=== PATIENT | male | born 1950 | race Caucasian/White ===

== ENCOUNTER 2021-01-11 08:41 | Observation (INO) | payer MEDICARE, SELFPAY ==
[2021-01-11 08:42] VITALS: BP 145/83; PULSE 84; RESP 18; TEMP 36.6; O2SAT 99; BMI 24.3
--- NOTE | 2021-01-11 09:32 | EX.ED.DYSGE1 ---
HPI History of Present Illness Chief Complaint: General Illness Informant: patient and spouse/S.O. Onset/Context/Timing Onset: Weeks (2) Context: Gradual Onset Timing: Continuous Quality: aching Location: all joints but mainly shoulders, wrists, hips Current Severity: Moderate Maximum Severity: Moderate Worsened by: moving Relieved by: remaining still. Partial improvement with naproxen. Associated Symptoms Associated Symptoms: none Narrative Narrative: Patient presenting with diffuse arthralgias that are making it hard to get around and move although he is able. This is been going on for 2 weeks. There was no obvious inciting event. He has had arthritis in 1 joint at a time before such as a hip, but never all over like this. He has had no fevers or chills. He has felt a little malaised but has been able to get around okay. He denies any headaches, changes in vision, focal weakness, paresthesias/numbness, or confusion. His low back hurts a little but for the most part the rest of his spine and neck are unaffected. He denies any swelling or redness in any joints. He denies having any IV injections or infusions of anything lately. He has never been vaccinated against Covid, and he has done 2 or 3 rapid antigen home tests in the past 2 weeks that have all been negative. His is not ill. He does live around trees and [place] but denies any known tick bites in the last several months. He saw his doctor twice already for this, and has had blood work, it showed elevated CRPs, normal ESR's, normal white blood counts, he had hyponatremia that went from 125-129, the last measurement was about 10 days ago and these were done by his PCP. He presents to the ER saying that he does not have any new symptoms but he is tired of the symptoms. [facility] Medical History Arthritis Back pain High cholesterol Hypertension Home Medications cyclobenzaprine 10 mg tablet 10 mg PO TID PRN #30 tab 06/13/17 [Rx Last Taken Unknown] lisinopril 20 mg PO DAILY 01/11/21 [History Last Taken Unknown] rosuvastatin 20 mg PO DAILY 01/11/21 [History Last Taken Unknown] tamsulosin 0.4 mg PO DAILY 01/11/21 [History Last Taken Unknown] Allergy/AdvReac Type Severity Reaction Status Date / Time No Known Allergies Allergy Verified 01/11/21 08:45 Social History Smoking Status: Never smoker alcohol intake: current ROS ROS ED Constitutional Constitutional ED: Reports malaise; Denies chills or fever(s) Eyes Eyes: Denies change in vision or diplopia ENT ENT ED: Denies rhinorrhea or sore throat Cardiovascular Cardiovascular: Denies chest pain or palpitations Respiratory/Chest Respiratory/Chest: Denies cough or dyspnea Gastrointestinal Gastrointestinal: Denies abdominal pain, diarrhea, nausea or vomiting Genitourinary Genitourinary ED: Denies dysuria or hematuria Musculoskeletal Musculoskeletal: Reports as per HPI, arthralgias and joint pain; Denies muscle cramps, muscle spasms, myalgias, neck pain or stiffness Integumentary Denies abscess or rash Neurologic Neurologic: Denies headache(s), paresthesias or weakness Psychiatric Psychiatric: Denies anxiety or suicidal thoughts EXAM Physical Exam Const Vital Signs: 01/11/21 08:42 01/11/21 08:57 01/11/21 11:20 Temperature 97.9 F Temperature Source Temporal Pulse Rate 84 65 Respiratory Rate 18 14 Respiratory Effort Normal Non-Labored Blood Pressure 145/83 H 134/72 H Blood Pressure Mean 103 92 Pulse Ox 99 99 Oxygen Delivery Method Room Air Room Air Positive well nourished and well developed General Appearance ED: well developed and NAD HEENT Reports moist mucous membranes normocephalic and atraumatic Eyes PERRL and EOMs intact bilaterally Neck full ROM and supple Resp normal respiratory effort and clear to auscultation bilaterally Cardio regular rate, regular rhythm and no murmurs GI non-tender and non-distended Auscultation: normoactive bowel sounds Palpation: soft Back/Spine no CVA tenderness General Back: other FROM Extremity normal to inspection and full ROM Extremity Narrative: Short arc range of motion of all joints without any difficulty. All joints affected are normal on inspection. Patient states that it hurts when he moves his hips especially and his shoulders but he is able. General Extremety ED: Negative for edema, pulses abnormal or tenderness General Extremity: Negative for edema or pulses abnormal Neuro oriented x3, CN's II-XII intact bilaterally and no sensory deficits noted Sensorium / Orientation: awake and alert Motor Exam: strength 5/5 throughout Skin no rashes or lesions noted and no wounds MDM MDM MDM Narrative Medical decision making narrative: Patient now is more hyponatremic than he was initially at 124. Unknown how this is related to his polyarthralgia. His ESR is now elevated as well as his CRP which is extremely high, he does not have a leukocytosis. I did do blood cultures, a Lyme screen, Covid PCR, none of which will come back today. Given his hyponatremia I think he may benefit from admission. Lab Data Attestation: I reviewed the patient's lab results. Labs: Laboratory Results - last 24 hr 01/11/21 01/11/21 01/11/21 09:47 09:50 10:05 WBC 8.9 RBC 3.94 L Hgb 12.0 L Hct 34.0 L MCV 86.3 MCH 30.5 MCHC 35.3 RDW Std Deviation 37.2 RDW Coeff of Ines 11.7 Plt Count 477 H MPV 7.8 Immature Gran % (Auto) 0.400 Neut % (Auto) 59.8 Lymph % (Auto) 23.6 [place] % (Auto) 13.7 H Eos % (Auto) 1.6 Baso % (Auto) 0.9 Absolute Neuts (auto) 5.3 Absolute Lymphs (auto) 2.10 Nucleated RBC % 0 ESR 88 H Sodium Potassium Chloride Carbon Dioxide Anion Gap BUN Creatinine Estim Creat Clear Calc Est GFR (MDRD) Af Amer Est GFR (MDRD) Non-Af BUN/Creatinine Ratio Glucose Calcium Total Bilirubin AST ALT Alkaline Phosphatase Total Creatine Kinase Troponin I High Sens C-React Prot Ext Range Total Protein Albumin Globulin Albumin/Globulin Ratio Urine Color Yellow Urine Clarity Sl. Cloudy Urine pH 8.0 Ur Specific [place] 1.015 Urine Protein Negative Urine Glucose (UA) Normal Urine Ketones Negative Urine Occult Blood Negative Urine Nitrite Negative Urine Bilirubin Negative Urine Urobilinogen Normal Ur Leukocyte Esterase Negative Urine RBC 0 SEEN Urine WBC 0 SEEN Ur Squamous Epith Cells 0 SEEN Amorphous Sediment 1+ Urine Bacteria 0 SEEN Urine Mucus 0 SEEN COVID-19 ([place]) Cancelled 01/11/21 01/11/21 10:05 10:05 WBC RBC Hgb Hct MCV MCH MCHC RDW Std Deviation RDW Coeff of Ines Plt Count MPV Immature Gran % (Auto) Neut % (Auto) Lymph % (Auto) [place] % (Auto) Eos % (Auto) Baso % (Auto) Absolute Neuts (auto) Absolute Lymphs (auto) Nucleated RBC % ESR Sodium 124 L Potassium 4.5 Chloride 93 L Carbon Dioxide 25.0 Anion Gap 6 BUN 8 Creatinine 0.79 Estim Creat Clear Calc 68.74 Est GFR (MDRD) Af Amer 124 Est GFR (MDRD) Non-Af 102 BUN/Creatinine Ratio 10.1 Glucose 101 Calcium 8.9 Total Bilirubin 0.50 AST 16 ALT 26 Alkaline Phosphatase 72 Total Creatine Kinase 60 Troponin I High Sens 3 C-React Prot Ext Range 118.00 H Total Protein 7.5 Albumin 2.9 L Globulin 4.6 H Albumin/Globulin Ratio 0.6 L Urine Color Urine Clarity Urine pH Ur Specific [place] Urine Protein Urine Glucose (UA) Urine Ketones Urine Occult Blood Urine Nitrite Urine Bilirubin Urine Urobilinogen Ur Leukocyte Esterase Urine RBC Urine WBC Ur Squamous Epith Cells Amorphous Sediment Urine Bacteria Urine Mucus COVID-19 ([place]) Discharge Plan Dx/Rx/DC Orders Clinical Impression: Acute hyponatremia, Polyarthralgia Disposition Disposition: Acute Care Hospital [facility]
[2021-01-11 09:54] LABS: Lyme Ab Screen Interpretation REF LAB
[2021-01-11 10:11] LABS: Bacteria 0 SEEN /hpf (None Seen); Mucous, Urine 0 SEEN /hpf (<or=2+); Red Blood Cells-Urine 0 SEEN /hpf (0-5); Squamous Epithelial Cells - UA 0 SEEN /hpf (0-5); White Blood Cells 0 SEEN /hpf (0-5)
[2021-01-11 10:18] LABS: Color, Urine Yellow (Yellow); Glucose, Dipstick Normal (Normal); Ketone-Dipstick Negative (Negative); Leukocyte Esterase-Dipstick Negative /ul (Negative); Nitrite-Dipstick Negative (Negative); Occult Blood-Urine Negative /ul (Negative); Protein-Dipstick Negative (Negative); Specific Gravity, Urine 1.015 (1.002-1.030); Urine Bilirubin Dipstick Negative (Negative); Urine Clarity Sl. Cloudy (Clear); Urine Urobilinogen Normal (Normal)
[2021-01-11 10:20] LABS: Erythrocyte Sedimentation Rate 88 mm/hr (0-20)
[2021-01-11 10:22] LABS: Absolute Neutrophil Count 5.3 X10^3/uL (2.0-7.7); Basophil# 0.08 X10^3/uL; Basophil% 0.9 % (0-1); Eosinophil# 0.14 X10^3/uL; Eosinophils% 1.6 % (0-5); Lymphocyte % 23.6 % (19-41); Mean Corp Hgb Conc 35.3 g/dL (32-36); Mean Corpuscular Hgb 30.5 pg (27.0-32.0); Mean Corpuscular Volume 86.3 fL (80-94); Mean Platelet Vol. 7.8 fl (6.2-12.0); Monocyte# 1.22 X10^3/uL; Monocyte% 13.7 % (0-10); NRBC Flagged by Analyzer 0 % (0-5); Neutrophil # 5.33 X10^3/uL (2.7-7.7); Neutrophil % 59.8 % (47-70); Platelet Count 477 K/mm3 (150-450); RBC Distribution Width CV 11.7 % (11.6-14.6); RBC Distribution Width SD 37.2 fl (35.1-43.9); Red Blood Count 3.94 M/mm3 (4.6-6.2); White Blood Count 8.9 K/mm3 (4.4-11.0)
[2021-01-11 10:24] LABS: Amorphous Sediment 1+
[2021-01-11 10:35] LABS: CPK Total, Creatine Kinase 60 U/L (39-308)
[2021-01-11 10:39] LABS: ALB/GLOB Ratio 0.6 RATIO (0.9-2.4); AST(SGOT) 16 U/L (15-37); Alanine Aminotransfer ALT/SGPT 26 U/L (16-61); Albumin, Serum 2.9 g/dL (3.2-5.0); Alkaline Phosphatase 72 U/L (45-117); Anion Gap 6 (5-15); BUN 8 mg/dL (7-18); BUN/Creat Ratio 10.1 RATIO (10-20); Calcium,Total 8.9 mg/dL (8.5-10.1); Chloride 93 mmol/L (98-107); Creatinine, Serum 0.79 mg/dL (0.70-1.30); EST Glomerular Filtration Rate 102 mL/min (>60); Est Glom Filt Rate - Afr Amer 124 mL/min (>60); Estimated Creatinine Clearance 68.74 ml/min; Globulin 4.6 g/dL (2.2-4.2); Glucose 101 mg/dL (74-106); Potassium 4.5 mmol/L (3.5-5.1); Protein, Total 7.5 g/dL (6.4-8.2); Sodium Level 124 mmol/L (136-145); Troponin-I HS 3 pg/mL (3.0-78.0)
[2021-01-11 11:20] VITALS: BP 134/72; PULSE 65; RESP 14; O2SAT 99
[2021-01-11 11:55] VITALS: BP 148/74; PULSE 65; RESP 16; TEMP 36.1; O2SAT 98
[2021-01-11 12:02] LABS: Osmolality, Serum 257 mOsm/KG (280-301)
[2021-01-11 12:06] VITALS: BMI 24.2
[2021-01-11 12:06] LABS: Rheumatoid Factor < 10.0 IU/mL (<15); Thyroid Stim Hormone (TSH) 1.21 uIU/mL (0.358-3.74); Uric Acid 3.1 mg/dL (3.5-7.2)
[2021-01-11] MEDS: predniSONE 20 MG Tablet PO (13:02)
--- NOTE | 2021-01-11 13:07 | HP.PCM.HOS_ITS ---
HPI - General General Date of Admission: 01/11/21 Date of Service: 01/11/21 Chief Complaint: Joint pain HPI Narrative RORY CARUSO, is a 70 M who presented to the emergency department [facility] on 01/11/2021 with a primary complaint of arthralgias. He reports that he has had some chronic issues with his bilateral hips over the last 2 years that have required some steroid injections. He states he is seeing Dr. Villatoro and he is not in need of a hip replacement at this time. He does indicate that the injections have helped. He states that over the last week he is developed pretty horrible bilateral shoulder pain and that his hips have worsened. His shoulder pain is severe enough that he is unable to lift his arms completely over his head without significant pain. He is also complaining of some pain in his wrists and a little bit in his elbows. He states an outpatient work-up has been performed initially he had negative inflammatory markers and a negative GORDON. His vital signs in the emergency department were overall unremarkable other than some mildly elevated blood pressure. His CBC shows a mild normocytic anemia which is not his baseline as well as a thrombocytosis which again is not his baseline. He has no significant left shift. His BMP shows hyponatremia with a sodium of 124. He appears to have chronic hyponatremia with a baseline in the 1 30-1 35 range. He is completely asymptomatic with regards to his hyponatremia. His ESR was found to be 88 and his CRP was 118. His LFTs are within normal limits. His troponin is negative at 3. His EKG is unremarkable. A UA was obtained and is overall unremarkable. A Covid 19 PCR was performed and was negative. The emergency department set off Lyme studies. After my assessment I suspect the patient has polymyalgia rheumatica. He denies any headache or jaw claudication associated symptoms as I would be concerned that he could potentially have giant cell arteritis in association with PMR. I started him on prednisone and he was admitted predominantly for his hyponatremia that is acute on chronic. He is admitted to [facility] as observation with suspected discharge tomorrow. [facility] Medical History Arthritis Back pain BPH (benign prostatic hyperplasia) Chronic hyponatremia High cholesterol Hypertension Home Medications cyclobenzaprine 10 mg tablet 10 mg PO TID PRN #30 tab 06/13/17 [Rx Last Taken Unknown] lisinopril 20 mg PO DAILY 01/11/21 [History Last Taken Unknown] rosuvastatin 20 mg PO DAILY 01/11/21 [History Last Taken Unknown] tamsulosin 0.4 mg PO DAILY 01/11/21 [History Last Taken Unknown] Allergy/AdvReac Type Severity Reaction Status Date / Time No Known Allergies Allergy Verified 01/11/21 08:45 no significant family history no surgical history Social History (Updated 01/11/21 @ 13:[address] Kaitlyn Kitchen, DO) Smoking Status: Never smoker alcohol intake: current alcohol intake frequency: 3 or more drinks per day Alcohol type: beer substance use type: does not use ROS Constitutional Constitutional: Reports fatigue, malaise and weakness; Denies anorexia, change in weight, chills, fever(s), night sweats or other Eyes Eyes: Denies blurry vision, change in eye color, change in vision, discharge from eye(s), double vision, erythema, eye pain, loss of vision or other ENT HEENT: Denies abnormal hearing, dysphagia, ear pain, epistaxis, headache(s), hearing loss, nasal congestion, nasal discharge, post nasal drip, sinus pressure, sore throat or other Cardiovascular Cardiovascular: Denies chest pain, claudication, dyspnea on exertion, edema, lightheadedness, orthopnea, palpitations, paroxysmal nocturnal dyspnea, rapid heart rate, syncope or other Respiratory/Chest Respiratory/Chest: Denies cough, dyspnea, excessive phlegm production, hemoptysis, productive cough, shortness of breath at rest, shortness of breath with exertion, wheezing or other Gastrointestinal Gastrointestinal: Denies abdominal pain, coffee ground emesis, constipation, diarrhea, dyspepsia, hematemesis, hematochezia, loose stools, melena, nausea, vomiting or other Genitourinary Genitourinary: Denies burning urination, difficulty urinating, dysuria, hematuria, nocturia, urinary frequency, urinary hesitancy, urinary incontinence, urinary urgency or other Musculoskeletal Musculoskeletal: Reports arthralgias, joint pain and joint stiffness; Denies back pain, joint swelling, myalgias, neck pain or other Neurologic Neurologic: Denies abnormal gait, abnormal speech, confusion, disequilibrium, dizziness, focal weakness, headache(s), numbness, paresthesias, seizure-like activity, seizures, syncope, tingling, tremor(s) or other Psychiatric Psychiatric: Denies anxiety, depression, homicidal ideation, suicidal ideation or other Endocrine Endocrinology: Denies change in body appearance, cold intolerance, excessive sweating, heat intolerance, polydipsia, polyuria or other Hematologic/Lymphatic Hematologic/Lymphatic: Denies anemia, easy bleeding, easy bruising, lymphadenopathy or other Allergic/Immunologic Allergic/Immunologic: Denies rhinitis, hives, eczemia, asthma or other Vital Signs Vital Signs Vital Signs: 01/11/21 08:42 01/11/21 08:57 01/11/21 11:20 Temperature 97.9 F Temperature Source Temporal Pulse Rate 84 65 Respiratory Rate 18 14 Respiratory Effort Normal Non-Labored Blood Pressure 145/83 H 134/72 H Blood Pressure Mean 103 92 Pulse Ox 99 99 Oxygen Delivery Method Room Air Room Air 01/11/21 11:55 Temperature 97 F L Temperature Source Temporal Pulse Rate 65 Respiratory Rate 16 Respiratory Effort Blood Pressure 148/74 H Blood Pressure Mean 98 Pulse Ox 98 Oxygen Delivery Method Room Air Weight Weight: 72.167 kg Body Mass Index (BMI) 24.2 Physical Exam Const alert, oriented x3, no apparent distress and average body habitus Constitutional Narrative: Older white male sitting up in bed, at bedside, appears nontoxic and pleasant General Appearance: cooperative HEENT normocephalic, head/scalp atraumatic, hearing grossly normal bilaterally and moist oral mucous membranes HEENT Narrative: Dentition is fair, Mallampati is 2, no thrush Eyes PERRL, EOMs intact bilaterally and conjunctivae normal Eyes Narrative: No scleral icterus Neck no lymphadenopathy, supple, no JVD and no carotid bruits Neck Narrative: Trachea midline, no thyroid enlargement Resp normal respiratory effort, no retractions, no use of accessory muscles and clear to auscultation bilaterally Auscultation: Negative for crackles, rales, rhonchi or wheezes Cardio regular rate, regular rhythm, S1 normal heart sound, S2 normal heart sound, no murmurs, no rub, no gallops, no clicks and no JVD GI normal to inspection, nondistended, normoactive bowel sounds, soft to palpation, non-tender and non-distended Extremity no clubbing, cyanosis or edema Extremity Narrative: Strength bilateral upper and lower extremities proximal greater than distal, pain with active and passive range of motion upper and lower extremities proximally at shoulders and hips with some pain at the elbows and wrists bilaterally although not as significant Peripheral Pulses: Yes pulses 2+ throughout Skin no rashes or lesions noted, no wounds, skin turgor normal, no jaundice, no petechiae and no mottling Neuro oriented x3, CN's II-XII intact bilaterally, moves all extremities and no focal motor deficits Neuro Narrative: Decrease strength as noted above Sensorium / Orientation: awake and alert Speech: speech normal Psych affect normal Results Lab / Micro Data Attestation: I reviewed the patient's lab results. Result Diagrams: 01/11/21 10:05 01/11/21 10:05 Labs: Laboratory Results - last 24 hr 01/11/21 09:47: COVID-19 ([place]) Cancelled 01/11/21 09:47: COVID-19 ([place]) Not Detected 01/11/21 09:50: Urine Color Yellow, Urine Clarity Sl. Cloudy, Urine pH 8.0, Ur Specific [place] 1.015, Urine Protein Negative, Urine Glucose (UA) Normal, Urine Ketones Negative, Urine Occult Blood Negative, Urine Nitrite Negative, Urine Bilirubin Negative, Urine Urobilinogen Normal, Ur Leukocyte Esterase Negative, Urine RBC 0 SEEN, Urine WBC 0 SEEN, Ur Squamous Epith Cells 0 SEEN, Amorphous Sediment 1+, Urine Bacteria 0 SEEN, Urine Mucus 0 SEEN 01/11/21 10:05: WBC 8.9, RBC 3.94 L, Hgb 12.0 L, Hct 34.0 L, MCV 86.3, MCH 30.5, MCHC 35.3, RDW Std Deviation 37.2, RDW Coeff of Ines 11.7, Plt Count 477 H, MPV 7.8, Immature Gran % (Auto) 0.400, Neut % (Auto) 59.8, Lymph % (Auto) 23.6, [place] % (Auto) 13.7 H, Eos % (Auto) 1.6, Baso % (Auto) 0.9, Absolute Neuts (auto) 5.3, Absolute Lymphs (auto) 2.10, Nucleated RBC % 0, ESR 88 H 01/11/21 10:05: Sodium 124 L, Potassium 4.5, Chloride 93 L, Carbon Dioxide 25.0, Anion Gap 6, BUN 8, Creatinine 0.79, Estim Creat Clear Calc 68.74, Est GFR (MDRD) Af Amer 124, Est GFR (MDRD) Non-Af 102, BUN/Creatinine Ratio 10.1, Glucose 101, Calcium 8.9, Total Bilirubin 0.50, AST 16, ALT 26, Alkaline Phosphatase 72, Troponin I High Sens 3, C-React Prot Ext Range 118.00 H, Total Protein 7.5, Albumin 2.9 L, Globulin 4.6 H, Albumin/Globulin Ratio 0.6 L 01/11/21 10:05: Total Creatine Kinase 60 01/11/21 10:05: Serum Osmolality 257 L 01/11/21 10:05: Uric Acid 3.1 L, TSH 1.21, Rheumatoid Factor < 10.0 Assessment & Plan Assessment/Plan (1) Polymyalgia rheumatica: (2) Normocytic anemia: (3) Thrombocytosis: PLAN: Suspected polymyalgia rheumatica -Patient with proximal lower and upper extremity joint pain of acute onset -Associated elevated CRP and ESR -Mild acute anemia that I suspect is related to inflammation -Thrombocytosis which I suspect is related to acute phase reactant elevation and is reactive -Start prednisone 20 mg daily -Would recommend continuing symptom controlling dose for 2 to 4 weeks after symptoms are controlled and then reduce by small increments such as 2.5 mg every 2 to 4 weeks and maintain the minimum amount to control symptoms -Patient with known signs or symptoms consistent with giant cell arteritis but will need to monitor him for this -We will recommend rheumatology follow-up at discharge Acute on chronic hyponatremia -Patient is on no medications that cause hyponatremia -Appears that his baseline is in the low 130s -Acute drop may be related to acute inflammation from SIADH -Check serum osmolality, urine osmolality, urine sodium, uric acid, TSH, and cortisol -We will start fluid restriction to 1500 cc at this time -Patient is also a regular drinker and this may contribute to his chronic hyponatremia although I doubt is responsible for the acute drop Normocytic anemia -Anticipate this is related to his acute inflammation and should improve when we resolve his inflammatory process -No signs of acute bleeding -Continue to monitor Thrombocytosis -Suspect related to acute inflammatory process -Continue to monitor Hypertension -Continue lisinopril Hyperlipidemia -Continue Crestor BPH -Continue Flomax Chronic alcohol use -Patient states he drinks 6-8 beers daily depending on the day. -He denies any recent history with alcohol withdrawal -We will continue to monitor and initiate treatment if needed -I did discuss chronic alcohol use as it is associated with chronic hyponatremia and he voiced understanding DVT prophylaxis -Lovenox CODE STATUS -Full code Charges/Coding Visit Charges Inpatient E&M: 34664 Init Hosp L3
[2021-01-11 15:07] VITALS: BP 138/77; PULSE 82; RESP 18; TEMP 36.3; O2SAT 99
[2021-01-11 21:00] VITALS: BP 111/67; PULSE 80; RESP 16; TEMP 36.6; O2SAT 95
--- NOTE | 2021-01-11 21:49 | PCS.PANDOC ---
PANDEMIC DOCUMENTATION INITIATED: Date: 10/01/2020 Time: 190
[2021-01-12 00:53] LABS: Urine Sodium 42 mmol/L (Not Establ.)
[2021-01-12 02:02] LABS: Osmolality, Urine 247 mOsm/KG
[2021-01-12 03:00] VITALS: BP 150/76; PULSE 71; RESP 18; TEMP 36.9; O2SAT 96
[2021-01-12] MEDS: Enoxaparin 40 MG/0.4 ML Syringe SC (06:40)
[2021-01-12 07:23] LABS: Absolute Lymphocyte Count 3.17 X10^3/uL (0.83-4.51); Absolute Neutrophil Count 4.4 X10^3/uL (2.0-7.7); Basophil# 0.02 X10^3/uL; Basophil% 0.2 % (0-1); Eosinophil# 0.04 X10^3/uL; Eosinophils% 0.5 % (0-5); Hematocrit 34.7 % (40-54); Hemoglobin 11.9 g/dL (13.0-16.5); Lymphocyte # 3.17 X10^3/ul (0.83-4.51); Lymphocyte % 39.2 % (19-41); Mean Corp Hgb Conc 34.3 g/dL (32-36); Mean Corpuscular Hgb 29.6 pg (27.0-32.0); Mean Corpuscular Volume 86.3 fL (80-94); Mean Platelet Vol. 7.9 fl (6.2-12.0); Monocyte# 0.39 X10^3/uL; Monocyte% 4.8 % (0-10); NRBC Flagged by Analyzer 0 % (0-5); Neutrophil # 4.44 X10^3/uL (2.7-7.7); Neutrophil % 54.9 % (47-70); Platelet Count 541 K/mm3 (150-450); RBC Distribution Width CV 11.6 % (11.6-14.6); RBC Distribution Width SD 36.8 fl (35.1-43.9); Red Blood Count 4.02 M/mm3 (4.6-6.2); White Blood Count 8.1 K/mm3 (4.4-11.0)
[2021-01-12 07:52] LABS: ALB/GLOB Ratio 0.6 RATIO (0.9-2.4); AST(SGOT) 13 U/L (15-37); Alanine Aminotransfer ALT/SGPT 28 U/L (16-61); Albumin, Serum 2.9 g/dL (3.2-5.0); Alkaline Phosphatase 71 U/L (45-117); Anion Gap 8 (5-15); BUN 9 mg/dL (7-18); BUN/Creat Ratio 12.4 RATIO (10-20); Calcium,Total 9.3 mg/dL (8.5-10.1); Chloride 97 mmol/L (98-107); Creatinine, Serum 0.72 mg/dL (0.70-1.30); EST Glomerular Filtration Rate 114 mL/min (>60); Est Glom Filt Rate - Afr Amer 138 mL/min (>60); Globulin 4.7 g/dL (2.2-4.2); Glucose 153 mg/dL (74-106); Magnesium 2.4 mg/dL (1.6-2.6); Phosphorus 3.3 mg/dL (2.5-4.9); Potassium 3.9 mmol/L (3.5-5.1); Protein, Total 7.6 g/dL (6.4-8.2); Sodium Level 127 mmol/L (136-145)
[2021-01-12 08:25] VITALS: BP 129/72; PULSE 76; RESP 18; TEMP 36.3; O2SAT 96
[2021-01-12] MEDS: Atorvastatin Calcium 40 MG Tablet PO (08:26)
[2021-01-12] MEDS: predniSONE 20 MG Tablet PO (08:27)
[2021-01-12] MEDS: Tamsulosin HCl 0.4 MG Capsule PO (08:27)
[2021-01-12] MEDS: Lisinopril 20 MG Tablet PO (08:27)
--- NOTE | 2021-01-12 11:02 | DS.PCM_ITS ---
Providers Date of Admission: 01/11/21 Primary Care Physician: Dr. Gonzalo Villatoro MD Reason For Visit: HYPONATREMIA Diagnosis Discharge Diagnosis (1) Polymyalgia rheumatica: Status: Acute Code(s): M35.3 - Polymyalgia rheumatica (2) Normocytic anemia: Status: Acute Code(s): D64.9 - Anemia, unspecified (3) Thrombocytosis: Status: Acute Code(s): D75.839 - Thrombocytosis, unspecified Medications at Discharge Home Medications cyclobenzaprine 10 mg tablet 10 mg PO TID PRN #30 tab 06/13/17 lisinopril 20 mg PO DAILY 01/11/21 rosuvastatin 20 mg PO DAILY 01/11/21 tamsulosin 0.4 mg PO DAILY 01/11/21 prednisone 20 mg PO BREAKFAST #30 tab 01/12/21 Hospital Course Operations None Procedures None Summary of Care Provided Minutes Spent on Discharge: 35 Hospital Course: RORY CARUSO, is a 70 M who presented to the emergency department [facility] on 01/11/2021 with a primary complaint of arthralgias. He reported that had some chronic issues with his bilateral hips over the last 2 years that have required some intra-articular steroid injections. He did indicate that the injections have helped. He stated that over the last week prior to admission he had developed pretty horrible bilateral shoulder pain and that his hips have worsened. His shoulder pain was severe enough that he was unable to lift his arms completely over his head without significant pain. He was also complaining of some pain in his wrists and a little bit in his elbows. He stated an outpatient work-up has been performed initially he had negative inflammatory markers and a negative GORDON. His vital signs in the emergency department were overall unremarkable other than some mildly elevated blood pressure. His CBC showed a mild normocytic anemia which did not appear to be his baseline as well as a thrombocytosis which again was not his baseline. He has no significant left shift. His BMP shows hyponatremia with a sodium of 124. He appears to have chronic hyponatremia with a baseline in the 130-135 range. He is completely asymptomatic with regards to his hyponatremia. His ESR was found to be 88 and his CRP was 118. His LFTs were within normal limits. His troponin is negative at 3. His EKG is unremarkable. A UA was obtained and is overall unremarkable. A Covid 19 PCR was performed and was negative. The emergency department set off Lyme studies. Upon my clinical exam I was highly suspicious for polymyalgia rheumatica given his proximal joint pain of acute onset, acute anemia, and markedly elevated inflammatory markers. Lyme studies are still pending at discharge however he was placed on prednisone 20 mg daily and his symptoms almost completely resolved by the next morning. He had no signs or symptoms consistent with giant cell arteritis but I did discuss with him the need to report any headaches or jaw claudication symptoms to his PCP. With regards to his hyponatremia work-up is consistent with SIADH and he did respond to a fluid restriction with an improvement in his sodium from 124- 127 on discharge. Again it appears his baseline ranges 130-135. Given the fact he was persistently asymptomatic and he did have improvement he was sent home with a fluid restriction of 1500 cc. I did review with him this is all fluids and encouraged alcohol cessation if possible. With regards to his polymyalgia rheumatica, I did refer him to [facility] and started prednisone 20 mg daily. I would recommend continuing the prednisone at the 20 mg dose for 2 to 4 weeks after his symptoms are controlled and then reduce by small increments of 2.5 mg every 2 to 4 weeks to maintain the minimal amount of prednisone that control his symptoms until he can follow-up with rheumatology. I instructed him to also follow-up with his PCP within the next week after discharge. Prescriptions for his prednisone were sent to his pharm acy for him to sampler pickup. He was discharged home on 01/12/2021 in stable condition. 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 Normocytic anemia Thrombocytosis Hypertension BPH Chronic alcohol use Physical Exam Const alert, oriented x3, no apparent distress and average body habitus Constitutional Narrative: Older white male sitting up in bed and watching television, patient appears comfortable and nontoxic General Appearance: cooperative, comfortable, well kempt and well developed Orientation / Consciousness: awake Exam Limitations: no limitations HEENT normocephalic, head/scalp atraumatic, hearing grossly normal bilaterally and moist oral mucous membranes Eyes PERRL, EOMs intact bilaterally and conjunctivae normal Eyes Narrative: No scleral icterus Neck no lymphadenopathy, supple, no JVD and no carotid bruits Neck Narrative: Trachea midline, no thyroid enlargement Resp normal respiratory effort, no retractions, no use of accessory muscles and clear to auscultation bilaterally Auscultation: Negative for crackles, rales, rhonchi or wheezes Cardio regular rate, regular rhythm, S1 normal heart sound, S2 normal heart sound, no murmurs, no rub, no gallops, no clicks and no JVD GI normal to inspection, nondistended, normoactive bowel sounds, soft to palpation, non-tender and non-distended Extremity no clubbing, cyanosis or edema Extremity Narrative: Bilateral upper and lower extremity strength much improved and patient is able to have full active range of motion of both shoulders with almost complete resolution of his pain Skin no rashes or lesions noted, no wounds, skin turgor normal, no jaundice, no petechiae and no mottling Neuro oriented x3, CN's II-XII intact bilaterally, moves all extremities and no focal motor deficits Neuro Narrative: Decrease strength as noted above Sensorium / Orientation: awake and alert Speech: speech normal Psych affect normal Weight / BMI Weight Weight: 72.167 kg Body Mass Index (BMI) 24.2 ABG / Lab / Microbiology Data Result Diagrams: 01/12/21 07:00 01/12/21 07:00 Laboratory: Laboratory Results - last 24 hr 01/11/21 09:47: COVID-19 (PA) Not Detected 01/11/21 10:05: Serum Osmolality 257 L 01/11/21 10:05: Uric Acid 3.1 L, TSH 1.21, Rheumatoid Factor < 10.0 01/11/21 10:05: Cortisol 14.80 01/12/21 00:00: Urine Osmolality 247, Ur Random Sodium 42 01/12/21 07:00: WBC 8.1, RBC 4.02 L, Hgb 11.9 L, Hct 34.7 L, MCV 86.3, MCH 29.6, MCHC 34.3, RDW Std Deviation 36.8, RDW Coeff of Ines 11.6, Plt Count 541 H, MPV 7.9, Immature Gran % (Auto) 0.400, Neut % (Auto) 54.9, Lymph % (Auto) 39.2, [place] % (Auto) 4.8, Eos % (Auto) 0.5, Baso % (Auto) 0.2, Absolute Neuts (auto) 4.4, Absolute Lymphs (auto) 3.17, Nucleated RBC % 0 01/12/21 07:00: Sodium 127 L, Potassium 3.9, Chloride 97 L, Carbon Dioxide 22.0, Anion Gap 8, BUN 9, Creatinine 0.72, Estim Creat Clear Calc 66.50, Est GFR (MDRD) Af Amer 138, Est GFR (MDRD) Non-Af 114, BUN/Creatinine Ratio 12.4, Glucose 153 H, Calcium 9.3, Phosphorus 3.3, Magnesium 2.4, Total Bilirubin 0.40, AST 13 L, ALT 28, Alkaline Phosphatase 71, Total Protein 7.6, Albumin 2.9 L, Globulin 4.7 H, Albumin/Globulin Ratio 0.6 L D/C Instructions Discharge Diet: No restrictions and - (1500 cc fluid restriction) Discharge Activity: Return to Normal Activity Return to work on: 01/14/21 Meaningful Use Info Meaningful Use Diagnoses (Choose all that apply): None applicable Discharge Plan Admission Admit Date/Time: 01/11/21 11:23 Primary Reason for Your Visit: Hyponatremia/Joint Pain Attending Provider: Kaitlyn Kitchen Primary Care Provider: Gonzalo Villatoro Instructions Additional Instructions / Restrictions: 1. Please call [facility] on 01/14/2021 for follow up appt for polymyalgia rheumatica 2. Continue prednisone until wean taper started as an outpatient 3. Limit fluid intake to 1500 cc of fluid daily--> this includes all fluids and avoid alcohol Discharge Orders/Prescriptions Prescriptions: New prednisone 20 mg Tablet 20 mg PO BREAKFAST Qty: 30 RF: 0 Continued cyclobenzaprine 10 mg tablet 10 mg PO TID PRN (Reason: muscle spasm) Qty: 30 RF: 0 lisinopril 20 mg tablet 20 mg PO DAILY RF: 0 tamsulosin 0.4 mg capsule 0.4 mg PO DAILY RF: 0 rosuvastatin 20 mg tablet 20 mg PO DAILY RF: 0 Referrals / Follow Up: Gonzalo Villatoro MD [Primary Care Provider] - Within 1 Week Disposition Disposition (needs filled in before D/C Order can be placed): Home, Self Care Charges/Coding Visit Charges Inpatient E&M: 56422 Disch Hosp
[2021-01-12 11:35] VITALS: BP 129/72; PULSE 76; RESP 18; TEMP 36.3; O2SAT 96
[2021-01-12 13:42] LABS: Lyme Scn Total Ab w/Rflx <0.91 ISR (0.00-0.90)
[2021-01-15 16:45] LABS: CCP IgG Antibodies 4 units (0-19)
== END 2021-01-12 12:37 | disposition home or self-care (01) ==
LOC: ED 11:37 → PCU 12:07
PROVIDERS: Admitting Provider Internal Medicine; Emergency Provider Emergency Medicine; PCP Family Medicine; Visit Provider Internal Medicine
DX: M35.3 Polymyalgia rheumatica (principal); D64.9 Anemia, unspecified; D75.839 Thrombocytosis, unspecified; E78.00 Pure hypercholesterolemia, unspecified; I10 Essential (primary) hypertension; E22.2 Syndrome of inappropriate secretion of antidiuretic hormone; N40.0 Benign prostatic hyperplasia without lower urinary tract symptoms; M19.90 Unspecified osteoarthritis, unspecified site; E78.5 Hyperlipidemia, unspecified; Z79.899 Other long term (current) drug therapy
CPT/HCPCS: 36415; 80053; 81001; 82533; 82550; 83735; 83930; 83935; 84100; 84300; 84443; 84484; 84550; 85025; 85652; 86140; 86200; 86431; 86618; 87635; 96372; 99218; 99251; 99284; U0005; A4216; G0378; G0463; U0003

== ENCOUNTER → 2022-08-29 | Outpatient (CLI) | payer MEDICARE, SELFPAY ==
[2022-08-29 16:43] LABS: Absolute Lymphocyte Count 2.67 X10^3/uL (0.83-4.51); Absolute Neutrophil Count 3.2 X10^3/uL (2.0-7.7); Basophil# 0.05 X10^3/uL; Basophil% 0.7 % (0-1); Eosinophil# 0.16 X10^3/uL; Eosinophils% 2.3 % (0-5); Hematocrit 40.1 % (40-54); Hemoglobin 13.8 g/dL (13.0-16.5); Lymphocyte # 2.67 X10^3/ul (0.83-4.51); Lymphocyte % 38.9 % (19-41); Mean Corp Hgb Conc 34.4 g/dL (32-36); Mean Corpuscular Hgb 31.2 pg (27.0-32.0); Mean Corpuscular Volume 90.5 fL (80-94); Monocyte# 0.78 X10^3/uL; Monocyte% 11.4 % (0-10); NRBC Flagged by Analyzer 0 % (0-5); Neutrophil # 3.18 X10^3/uL (2.7-7.7); Neutrophil % 46.4 % (47-70); Platelet Count 272 K/mm3 (150-450); RBC Distribution Width CV 12.7 % (11.6-14.6); RBC Distribution Width SD 42.5 fl (35.1-43.9); Red Blood Count 4.43 M/mm3 (4.6-6.2); White Blood Count 6.9 K/mm3 (4.4-11.0)
[2022-08-29 16:49] LABS: ALB/GLOB Ratio 1.2 RATIO (0.9-2.4); AST(SGOT) 14 U/L (15-37); Alanine Aminotransfer ALT/SGPT 25 U/L (16-61); Albumin, Serum 3.9 g/dL (3.2-5.0); Alkaline Phosphatase 40 U/L (45-117); Anion Gap 6 (5-15); BUN 8 mg/dL (7-18); BUN/Creat Ratio 8.4 RATIO (10-20); CRP < 2.90 mg/L (0.0-3.0); Calcium,Total 8.7 mg/dL (8.5-10.1); Chloride 100 mmol/L (98-107); Creatinine, Serum 0.95 mg/dL (0.70-1.30); EST Glomerular Filtration Rate 83 mL/min (>60); Est Glom Filt Rate - Afr Amer 100 mL/min (>60); Globulin 3.3 g/dL (2.2-4.2); Glucose 96 mg/dL (74-106); Potassium 4.6 mmol/L (3.5-5.1); Protein, Total 7.2 g/dL (6.4-8.2); Rheumatoid Factor < 10.0 IU/mL (<15); Sodium Level 131 mmol/L (136-145)
[2022-08-29 16:57] LABS: Erythrocyte Sedimentation Rate 2 mm/hr (0-20)
[2022-08-29 17:29] LABS: Hepatitis B Surface Antibody Reactive; Hepatitis B Surface Antigen Non-Reactive (Nonreactive); Hepatitis C Antibody Non-Reactive (Nonreactive)
[2022-09-01 12:08] LABS: CCP IgG Antibodies 5 units (0-19)
[2022-09-01 16:08] LABS: ANTINUCLEAR ANTIBODIES DIRECT Negative (Negative)
== END | disposition home or self-care (01) ==
LOC: MFPLAB 10:16
PROVIDERS: PCP Internal Medicine Rheumatology; Visit Provider Internal Medicine Rheumatology
DX: M06.4 Inflammatory polyarthropathy (principal); I10 Essential (primary) hypertension; E78.5 Hyperlipidemia, unspecified; N40.0 Benign prostatic hyperplasia without lower urinary tract symptoms; J30.2 Other seasonal allergic rhinitis
CPT/HCPCS: 36415; 80053; 85025; 85652; 86038; 86140; 86200; 86431; 86706; 86803; 87340

== ENCOUNTER 2022-11-09 08:08 | Emergency (ER) | payer MEDICARE, SELFPAY ==
[2022-11-09 08:09] VITALS: BP 161/87; PULSE 81; RESP 16; TEMP 36.8; O2SAT 99; BMI 24.7
--- NOTE | 2022-11-09 08:40 | CT_ITS ---
EXAM: CT ABDOMEN AND PELVIS WITH INTRAVENOUS CONTRAST CLINICAL INDICATION: Left-sided abdominal pain. TECHNIQUE: Helically acquired images were obtained of the abdomen and pelvis with intravenous contrast. This CT exam was performed using one or more of the following dose reduction techniques: automated exposure control, adjustment of the mA and/or kV according to patient size, and/or use of iterative reconstruction technique. CONTRAST: IV 100mL Isovue-370 RADIATION DOSE: CTDIvol = 14.73 mGy, DLP = 656.62 mGy-cm COMPARISON: No relevant prior studies available. FINDINGS: LOWER THORAX: Unremarkable. Lung bases are clear. No cardiomegaly. No significant pericardial effusion. ABDOMEN: LIVER: Unremarkable. Homogeneous. No focal mass. GALLBLADDER AND BILE DUCTS: Unremarkable. No calcified gallstones. No gallbladder distention or wall edema. No intra- or extrahepatic biliary ductal dilation. PANCREAS: Unremarkable. No focal cystic or solid mass. SPLEEN: Unremarkable. Normal size without focal cystic or solid mass. ADRENALS: Unremarkable. No nodules. KIDNEYS AND URETERS: Unremarkable. Normal renal size and position. No hydronephrosis. STOMACH AND BOWEL: Unremarkable. No stomach or bowel distention. No focal inflammatory change. PELVIS: APPENDIX: Normal. BLADDER: Unremarkable. REPRODUCTIVE: Unremarkable as visualized. No mass. ABDOMEN and PELVIS: INTRAPERITONEAL SPACE: Unremarkable. No ascites or other fluid collection. No free air. BONES/JOINTS: Unremarkable. No suspicious lytic or blastic abnormality. SOFT TISSUES: Unremarkable. No discrete abdominal or pelvic wall hernia. VASCULATURE: Few calcified plaques along the abdominal aorta and more calcified plaques in the right common iliac artery, bilateral common femoral arteries and bilateral proximal SFAs. Abdominal aorta is non-dilated. LYMPH NODES: Unremarkable. No enlarged lymph nodes. CT/Abdomen/Pelvis W IV Cont ONLY IMPRESSION: No acute findings in the abdomen or pelvis. Electronically Signed: Alex Stone MD at 9:57 EDT ,
[2022-11-09 08:54] LABS: Absolute Lymphocyte Count 2.52 X10^3/uL (0.83-4.51); Absolute Neutrophil Count 3.2 X10^3/uL (2.0-7.7); Basophil# 0.05 X10^3/uL; Basophil% 0.8 % (0-1); Eosinophil# 0.16 X10^3/uL; Eosinophils% 2.4 % (0-5); Hematocrit 39.7 % (40-54); Hemoglobin 13.7 g/dL (13.0-16.5); Lymphocyte # 2.52 X10^3/ul (0.83-4.51); Lymphocyte % 38.2 % (19-41); Mean Corp Hgb Conc 34.5 g/dL (32-36); Mean Corpuscular Hgb 31.6 pg (27.0-32.0); Mean Corpuscular Volume 91.5 fL (80-94); Mean Platelet Vol. 8.7 fl (6.2-12.0); Monocyte# 0.68 X10^3/uL; Monocyte% 10.3 % (0-10); NRBC Flagged by Analyzer 0 % (0-5); Neutrophil # 3.17 X10^3/uL (2.7-7.7); Platelet Count 276 K/mm3 (150-450); RBC Distribution Width CV 12.9 % (11.6-14.6); RBC Distribution Width SD 43.3 fl (35.1-43.9); Red Blood Count 4.34 M/mm3 (4.6-6.2); White Blood Count 6.6 K/mm3 (4.4-11.0)
--- NOTE | 2022-11-09 08:54 | EDS_ITS ---
HPI HPI - GI History of Present Illness Chief Complaint: Abd Pain Informant: patient Narrative Narrative: Patient is a 71-year-old male with history of polymyalgia rheumatica, hypertension, hyperlipidemia, BPH and regular alcohol use presenting with left- sided abdominal pain. He states has been intermittent for the past 3 weeks but has become more severe today. [facility] but they told him he have to go to the ER. He states he was little bit better at that time and decided to wait it out 1 more day. He denies any significant change in his symptoms today. He notes he is been nauseous for the past 3 weeks. He does have a mild headache at this point. States the pain is on his left side and sharp. It does not radiate. Denies any urinary symptoms however does note his urine's been a little bit darker however he thinks it may be medication related. Was previously having diarrhea but attributed that to his methotrexate. Denies any black or blood in his stool. He had been on meloxicam when his symptoms started but he stopped that about 2 weeks ago and has had no improvement of his symptoms. Denies any fever, chills or weight change. Has never had an EGD or colonoscopy before. Denies any fever or chills. Denies any chest pain or shortness of breath. No other complaints or concerns at this time. Eating does make it worse. Started Prilosec yesterday was not help. Tums will help for short amount of time but then the symptoms will return. [facility] Medical History Acute hyponatremia Arthritis Back pain BPH (benign prostatic hyperplasia) Chronic hyponatremia High cholesterol Hypertension Normocytic anemia Polymyalgia rheumatica Thrombocytosis Home Medications cyclobenzaprine 10 mg tablet 10 mg PO TID PRN muscle spasm #30 tabs 06/13/17 [Rx Last Taken Unknown] lisinopril 20 mg tablet 20 mg PO DAILY blood pressure 01/11/21 [History Last Taken Unknown] rosuvastatin 20 mg tablet 20 mg PO DAILY cholesterol 01/11/21 [History Last Taken Unknown] tamsulosin 0.4 mg capsule 0.4 mg PO DAILY prostate 01/11/21 [History Last Taken Unknown] esomeprazole magnesium 40 mg capsule,delayed release (Nexium) 40 mg PO DAILY #20 caps 11/09/22 [Rx Last Taken Unknown] folic acid 1 mg tablet 11/09/22 [History Last Taken 11/06/22] ondansetron 4 mg disintegrating tablet 4 mg PO Q8H PRN PRN Nausea #10 tabs 11/09/22 [Rx Last Taken Unknown] Allergy/AdvReac Type Severity Reaction Status Date / Time No Known Allergies Allergy Verified 11/09/22 08:11 Social History Smoking Status: Never smoker alcohol intake: current alcohol intake frequency: 3 or more drinks per day Alcohol type: beer substance use type: does not use ROS ROS ED Constitutional Constitutional ED: Denies chills, fever(s), sweats or weight loss ENT ENT ED: Denies sore throat Cardiovascular Cardiovascular: Denies chest pain Respiratory/Chest Respiratory/Chest: Denies cough or dyspnea Gastrointestinal Gastrointestinal: Reports abdominal pain and nausea; Denies diarrhea or vomiting Musculoskeletal Musculoskeletal: Reports arthralgias; Denies myalgias Integumentary Denies rash Neurologic Neurologic: Reports headache(s); Denies weakness Psychiatric Psychiatric: Denies anxiety Hematologic/Lymphatic Hematologic/Lymphatic: Denies easy bleeding or easy bruising EXAM Physical Exam Const Vital Signs: 11/09/22 08:09 Temperature 98.3 F Temperature Source Temporal Pulse Rate 81 Respiratory Rate 16 Blood Pressure 161/87 H Blood Pressure Mean 111 Pulse Ox 99 Oxygen Delivery Method Room Air Positive well nourished and well developed General Appearance ED: well developed and NAD; Negative for pallor HEENT Reports moist mucous membranes normocephalic and atraumatic Eyes PERRL and EOMs intact bilaterally General Eye ED: Negative for pale conjunctiva or scleral icterus Neck supple and no JVD Resp normal respiratory effort and clear to auscultation bilaterally Cardio regular rate, regular rhythm and no murmurs GI non-distended GI Narrative: Pain in the epigastric region, left upper quadrant and right upper quadrant. Negative Núñez sign. Auscultation: normoactive bowel sounds Palpation: soft and tender other (left mid abdomen ); Negative for guarding or rigid Back/Spine no CVA tenderness Extremity full ROM General Extremety ED: Negative for edema General Extremity: Negative for edema Neuro Sensorium / Orientation: alert, oriented to person, oriented to place and oriented to time Motor Exam: Negative for general weakness Psych mental status grossly normal and thought process normal Skin General Skin Exam: Negative for jaundice or pallor Lesions: no lesions Rashes: no rashes MDM MDM MDM Narrative Medical decision making narrative: So every 3 weeks of intermittent nausea as well as left-sided abdominal pain. Peers nontoxic no acute distress. Vital signs significant for mild hypertension but otherwise normal. Differential includes gastritis, peptic ulcer disease, H. pylori, pancreatitis, diverticulitis and abdominal mass. Renal pathology is also on the differential but I think less likely. Pain is a little lower than I would expect for peptic ulcer disease. Because of this we will obtain a CT of the abdomen pelvis for further evaluation in addition to abdominal labs. Patient given IV morphine, Zofran and fluids for symptom control. he is well appearing medicine did not really help his symptoms however he also states he now feels hungry. Work-up including CBC, CMP, lipase and urinalysis is largely normal. He has a mild but chronic and actually improved hyponatremia. He has a normal BUN is a low suspicion for GI bleed. His hemoglobin is normal. He has no leukocytosis. Urinalysis is normal. CT of the abdomen pelvis with IV contrast does not show any acute process to explain his symptoms. He has some nonspecific vascular calcifications however his presentation is not really consistent with claudication of the GI tract and his CT does not show findings distant with ischemic colitis. She will be treated for possible peptic ulcer disease/gastritis. Patient be given a GI cocktail. Will be referred to surgery as a suspect he will need endoscopy. Is counseled that he will need to be on a PPI for at least 2 weeks probably to have improvement. Is also counseled on acid friendly diet and to decrease his alcohol and caffeine intake. Counseled on return precautions. Patient verbalized agreement of transplant. Discharged home in stable condition. Lab Data Attestation: I reviewed the patient's lab results. Labs: Laboratory Results - last 24 hr 11/09/22 11/09/22 08:20 08:50 WBC 6.6 RBC 4.34 L Hgb 13.7 Hct 39.7 L MCV 91.5 MCH 31.6 MCHC 34.5 RDW Std Deviation 43.3 RDW Coeff of Ines 12.9 Plt Count 276 MPV 8.7 Immature Gran % (Auto) 0.300 Neut % (Auto) 48.0 Lymph % (Auto) 38.2 [place] % (Auto) 10.3 H Eos % (Auto) 2.4 Baso % (Auto) 0.8 Absolute Neuts (auto) 3.2 Absolute Lymphs (auto) 2.52 Nucleated RBC % 0 Sodium 133 L Potassium 4.2 Chloride 99 Carbon Dioxide 25.0 Anion Gap 9 BUN 8 Creatinine 0.97 Estim Creat Clear Calc 69.85 Est GFR (MDRD) Af Amer 98 Est GFR (MDRD) Non-Af 81 BUN/Creatinine Ratio 8.3 L Glucose 131 H Calcium 8.6 Total Bilirubin 0.70 AST 20 ALT 34 Alkaline Phosphatase 45 Total Protein 7.5 Albumin 4.0 Globulin 3.5 Albumin/Globulin Ratio 1.1 Lipase 34 Urine Color Yellow Urine Clarity Sl. Cloudy Urine pH 7.0 Ur Specific [place] 1.010 Urine Protein Negative Urine Glucose (UA) Normal Urine Ketones Negative Urine Occult Blood Negative Urine Nitrite Negative Urine Bilirubin Negative Urine Urobilinogen Normal Ur Leukocyte Esterase Negative Urine RBC 0 SEEN Urine WBC 0 SEEN Ur Squamous Epith Cells 0 SEEN Urine Bacteria 0 SEEN Urine Mucus 0 SEEN Radiography Diagnostic Testing: Clinical Impression(s) from Imaging Studies Abdomen/Pelvis CT 11/09/22 08:40 IMPRESSION: No acute findings in the abdomen or pelvis. Electronically Signed: Alex Stone MD at 9:57 EDT , Discharge Plan Triage Chief Complaint: Abd Pain ED Provider: Heidi Wtason Dx/Rx/DC Orders Clinical Impression: Abdominal pain of unknown etiology Instructions: ED Abdominal Pain Unkn Cause Male... Prescriptions: New esomeprazole magnesium [Nexium] 40 mg capsule,delayed release(DR/EC) 40 mg PO DAILY Qty: 20 0RF ondansetron 4 mg tablet,disintegrating 4 mg PO Q8H PRN PRN (Reason: Nausea) Qty: 10 0RF No Action cyclobenzaprine 10 mg tablet 10 mg PO TID PRN (Reason: muscle spasm) Qty: 30 0RF lisinopril 20 mg tablet 20 mg PO DAILY Patient Comments: take 1 tablet by mouth once daily tamsulosin 0.4 mg capsule 0.4 mg PO DAILY Patient Comments: take 1 capsule by mouth once daily rosuvastatin 20 mg tablet 20 mg PO DAILY Patient Comments: take 1 tablet by mouth once daily folic acid 1 mg tablet Patient Comments: TAKE 2 TABLETS BY MOUTH EVERY DAY Primary Care Provider: Gonzalo Villatoro Referrals: Kalyan Dixon MD [Med Staff - Active Staff] - 1-2 Weeks Gonzalo Villatoro MD [Primary Care Provider] - Activity Restrictions/Additional Instructions: Your work-up was largely normal today. You will be treated for inflammation in your stomach with an antacid. You may continue to take Tums or [id number] Maalox as needed for breakthrough symptoms. You also given a prescription for nausea medicine. As we discussed please avoid high acid foods, moderate your caffeine and alcohol intake to help with irritation of the stomach. As we discussed you might need follow-up for endoscopy of your stomach and possibly your colon for further evaluation of your symptoms Disposition Disposition: Home, Self Care Discharge Date/Time: 11/09/22 10:44
[2022-11-09] MEDS: Ondansetron 4 MG/2 ML Vial IV (08:59)
[2022-11-09] MEDS: Morphine 4 MG/ML Syringe IV (08:59)
[2022-11-09] MEDS: 0.9% Normal Saline (1000mL) 1,000 ML 1000 ML IV (08:59)
[2022-11-09 09:02] LABS: Bacteria 0 SEEN /hpf (None Seen); Mucous, Urine 0 SEEN /hpf (<or=2+); Red Blood Cells-Urine 0 SEEN /hpf (0-5); Squamous Epithelial Cells - UA 0 SEEN /hpf (0-5); White Blood Cells 0 SEEN /hpf (0-5)
[2022-11-09 09:04] LABS: Color, Urine Yellow (Yellow); Glucose, Dipstick Normal (Normal); Ketone-Dipstick Negative (Negative); Leukocyte Esterase-Dipstick Negative /ul (Negative); Nitrite-Dipstick Negative (Negative); Occult Blood-Urine Negative /ul (Negative); Protein-Dipstick Negative (Negative); Urine Bilirubin Dipstick Negative (Negative); Urine Clarity Sl. Cloudy (Clear); Urine Urobilinogen Normal (Normal)
[2022-11-09 09:24] LABS: ALB/GLOB Ratio 1.1 RATIO (0.9-2.4); AST(SGOT) 20 U/L (15-37); Alanine Aminotransfer ALT/SGPT 34 U/L (16-61); Alkaline Phosphatase 45 U/L (45-117); Anion Gap 9 (5-15); BUN 8 mg/dL (7-18); BUN/Creat Ratio 8.3 RATIO (10-20); Calcium,Total 8.6 mg/dL (8.5-10.1); Chloride 99 mmol/L (98-107); Creatinine, Serum 0.97 mg/dL (0.70-1.30); EST Glomerular Filtration Rate 81 mL/min (>60); Est Glom Filt Rate - Afr Amer 98 mL/min (>60); Estimated Creatinine Clearance 69.85 ml/min; Globulin 3.5 g/dL (2.2-4.2); Glucose 131 mg/dL (74-106); Lipase 34 U/L (13-75); Potassium 4.2 mmol/L (3.5-5.1); Protein, Total 7.5 g/dL (6.4-8.2); Sodium Level 133 mmol/L (136-145)
[2022-11-09] MEDS: Mag Hydrox/Al Hydrox/Simeth 30 ML UDC PO (10:21)
== END 2022-11-09 10:44 | disposition home or self-care (01) ==
PROVIDERS: Emergency Provider Emergency Medicine; PCP Family Medicine; Visit Provider Emergency Medicine
DX: R10.11 Right upper quadrant pain (principal); R10.12 Left upper quadrant pain; R11.0 Nausea; I10 Essential (primary) hypertension; E87.1 Hypo-osmolality and hyponatremia; R51.9 Headache, unspecified
CPT/HCPCS: 74177; 80053; 81001; 83690; 85025; 96361; 96374; 96375; 99283; J7030; Q9967; A4216; J2405

== ENCOUNTER 2022-12-09 07:38 | Day surgery (SDC) | payer MEDICARE, SELFPAY ==
[2022-12-09] VITALS (7 sets, daily range): BP systolic 126–175; BP diastolic 74–94; PULSE 60–72; RESP 16–18; TEMP 36.2–36.6; O2SAT 98–100; BMI 23.5
--- NOTE | 2022-12-09 | GASB_PTH ---
PATIENT: RORY CARUSO LOC: EN U#:[id number] AGE/SX: 72/M ROOM: RE12/09/[address]: Dr. Kalyan Dixon MD : 1950 BED: DIS: 12/09/2022 SPEC #: [id number] RECD: 12/09/22 13:00 STATUS: VANDANA ROMÁN #: [id number] CARMELO: 12/09/22 00:[address]: Kalyan Dixon DEPT: SURGICAL PATHOLOGY RECD BY: David Delgado ENTERED: 12/09/22 13:01 SP TYPE: Gastric Bx OTHR DR: MD Gonzalo Marvin MD Tissues: A - Gastric mucous membrane B - Gastric mucous membrane C - Gastric mucous membrane D - Gastric mucous membrane E - Esophageal mucous membrane F - COLON BIOPSY G - COLON BIOPSY H - Descending colon I - Sigmoid colon biopsy J - Rectum, NOS Procedures: Surgery Specimen Level IV HEADER OPERATION: Colonoscopy, EGD with biopsies and polypectomy PRE-OP DIAGNOSIS: Postprandial epigastric pain, diarrhea, LLQ pain TISSUE SUBMITTED: A - Antrum biopsy for H. pylori and path, B - Greater curvature body polyp biopsy, C - Cardia polyp, D - Gastroesophageal junction biopsy, E - Mid esophagus plaque biopsy, F - Radnom mucosal colon biopsy, G - Transverse colon biopsy, H - Sessile polyp descending colon biopsy, I - Sigmoid biopsy, J - Rectal mucosa biopsy MICROSCOPIC DIAGNOSIS A. Gastric antrum, biopsy: Chronic gastritis. See comment. B. Stomach, greater curvature, biopsy: Chronic gastritis. C. Gastric cardia polyp, biopsy: Suggestive of fundic gland polyp. D. Gastroesophageal junction, biopsy: Fragments of benign squamous mucosa. No evidence of inflammation. E. Mid esophagus plaque, biopsy: Fragments of benign squamous mucosa. No evidence of inflammation. F. Colon, random biopsy: No pathologic change. G. Transverse colon, biopsy: No pathologic change. H. Descending colon polyp, biopsy: Fragments of tubular adenoma. I. Sigmoid colon, biopsy: No pathologic change. J. Rectum, biopsy: No pathologic change. AM:lashell 12/10/2022 COMMENT A. The results of immunohistochemistry for Helicobacter pylori will be reported separately ([id number]). MICROSCOPIC DESCRIPTION Slides are reviewed. GROSS DESCRIPTION A - Received in fixative is one container labeled with the patient's name and designated antrum biopsy. The specimen consists of multiple irregular fragments of light stiles soft tissue that in aggregate measure 0.8 x 0.3 x 0.1 cm. The specimen is totally submitted in one cassette. B - Received in fixative is one container labeled with the patient's name and designated greater curvature polyp biopsy. The specimen consists of two irregular fragments of light stiles soft tissue that in aggregate measure 0.6 x 0.3 x 0.1 cm. The specimen is totally submitted in one cassette. C - Received in fixative is one container labeled with the patient's name and designated cardia polyp. The specimen consists of two irregular fragments of light stiles soft tissue that in aggregate measure 0.4 x 0.2 x 0.1 cm. The specimen is totally submitted in one cassette. D - Received in fixative is one container labeled with the patient's name and designated GE junction biopsy. The specimen consists of multiple irregular fragments of light stiles soft tissue that in aggregate measure 0.5 x 0.5 x 0.1 cm. The specimen is totally submitted in one cassette. E - Received in fixative is one container labeled with the patient's name and designated mid esophagus plaque biopsy. The specimen consists of one irregular fragment of light stiles soft tissue that measures 0.5 x 0.3 x 0.1 cm. The specimen is totally submitted in one cassette. F - Received in fixative is one container labeled with the patient's name and designated random mucosal colon biopsy. The specimen consists of two irregular fragments of light stiles soft tissue that in aggregate measure 0.4 x 0.2 x 0.1 cm. The specimen is totally submitted in one cassette. G - Received in fixative is one container labeled with the patient's name and designated transverse colon biopsy. The specimen consists of two irregular fragments of light stiles soft tissue that in aggregate measure 0.5 x 0.5 x 0.1 cm. The specimen is totally submitted in one cassette. H - Received in fixative is one container labeled with the patient's name and designated sessile polyp descending colon biopsy. The specimen consists of two irregular fragments of light stiles soft tissue that in aggregate measure 0.6 x 0.4 x 0.1 cm. The specimen is totally submitted in one cassette. I - Received in fixative is one container labeled with the patient's name and designated sigmoid biopsy. The specimen consists of two irregular fragments of light stiles soft tissue that in aggregate measure 0.6 x 0.3 x 0.1 cm. The specimen is totally submitted in one cassette. J - Received in fixative is one container labeled with the patient's name and designated rectal mucosa biopsy. The specimen consists of one irregular fragment of light stiles soft tissue that measures 0.4 x 0.3 x 0.1 cm. The specimen is totally submitted in one cassette. / SJ:rg 12/09/2022 TC:3 CPT: 77518 x10
[2022-12-09] MEDS: Lactated Ringers 1,000 ML 15 ML IV (08:12)
[2022-12-09 08:23] LABS: Absolute Lymphocyte Count 1.97 X10^3/uL (0.83-4.51); Absolute Neutrophil Count 4.7 X10^3/uL (2.0-7.7); Basophil# 0.02 X10^3/uL; Basophil% 0.3 % (0-1); Eosinophil# 0.01 X10^3/uL; Eosinophils% 0.1 % (0-5); Hematocrit 38.6 % (40-54); Hemoglobin 13.2 g/dL (13.0-16.5); Lymphocyte # 1.97 X10^3/ul (0.83-4.51); Lymphocyte % 26.8 % (19-41); Mean Corp Hgb Conc 34.2 g/dL (32-36); Mean Corpuscular Volume 93.7 fL (80-94); Mean Platelet Vol. 8.8 fl (6.2-12.0); Monocyte# 0.64 X10^3/uL; Monocyte% 8.7 % (0-10); NRBC Flagged by Analyzer 0 % (0-5); Neutrophil # 4.67 X10^3/uL (2.7-7.7); Neutrophil % 63.7 % (47-70); Platelet Count 274 K/mm3 (150-450); RBC Distribution Width CV 12.8 % (11.6-14.6); RBC Distribution Width SD 43.9 fl (35.1-43.9); Red Blood Count 4.12 M/mm3 (4.6-6.2); White Blood Count 7.3 K/mm3 (4.4-11.0)
--- NOTE | 2022-12-09 08:58 | HP.PCM_ITS ---
History and Physical Date of Admission: 12/09/22 MR#: [id number] Acct: [id number] Name: RORY CARUSO Rep #: [id number] : 1950 Provider: Dr. Kalyan Dixon MD Age/Sex: 72/M Location: [facility] Status: Signed Intake Vital Signs 11/10/2307:09 11/26/2308:05 Height 5 ft 9 in Weight: 168 lb 6 oz BP 152/83 H Blood Pressure Location Rt brachial Position Sitting Respiration 7 L Pulse 78 Pulse Source Monitor Temp 97.1 F L Temp Source Temporal Pulse Oximetry (%) 98 Oxygen Delivery Method room air Intake Visit Reasons: STOMACH ISSUES ER 11/09 Chief Complaint: ER 11/09 stomach issues Is patient in pain?: Yes Allergies Sulfa (Sulfonamide Antibiotics) Allergy (Intermediate, Verified 11/26/22 09:25) Rash Medications cyclobenzaprine 10 mg tablet 10 mg PO TID PRN muscle spasm #30 tabs 06/13/17 [Rx Confirmed 11/26/22] lisinopril 20 mg tablet 20 mg PO DAILY blood pressure 01/11/21 [History Confirmed 11/26/22] rosuvastatin 20 mg tablet 20 mg PO DAILY cholesterol 01/11/21 [History Confirmed 11/26/22] tamsulosin 0.4 mg capsule 0.4 mg PO DAILY prostate 01/11/21 [History Confirmed 11/26/22] esomeprazole magnesium 40 mg capsule,delayed release (Nexium) 40 mg PO DAILY #20 caps 11/09/22 [Rx Confirmed 11/26/22] folic acid 1 mg tablet 11/09/22 [History Confirmed 11/26/22] meloxicam 15 mg tablet 15 mg PO DAILY PRN 11/26/22 [History Confirmed 11/26/22] omeprazole 20 mg capsule,delayed release 20 mg PO DAILY #30 caps 11/26/22 [Rx Confirmed 11/26/22] ondansetron 4 mg disintegrating tablet 4 mg PO Q8H PRN PRN Nausea #10 tabs 11/26/22 [Rx Confirmed 11/26/22] prednisone 10 mg tablet 10 mg PO DIRECTED 11/26/22 [History Confirmed 11/26/22] tramadol 50 mg tablet 50 mg PO BID PRN 11/26/22 [History Confirmed 11/26/22] [facility] Medical History Acute hyponatremia Arthritis Back pain BPH (benign prostatic hyperplasia) Chronic hyponatremia High cholesterol Hypertension Normocytic anemia Polymyalgia rheumatica Thrombocytosis Social History (Updated 11/26/22 @ 09:04 by Tiffany Richie) Smoking Status: Former smoker alcohol intake: current alcohol intake frequency: 3 or more drinks per day Alcohol type: beer substance use type: does not use HPI HPI HPI: Patient is a 72-year-old male who presents for upper abdominal pain and nausea. They are referred for surgical consultation from emergency medicine where they were evaluated on 11/09/2022. He reports today with his . He states that his symptoms have been ongoing for the last 3 weeks or so. He notes that presently his symptoms have improved with less pain and improved nausea. He does note that the symptoms seem to be restricted simply to morning time. He was prescribed Nexium by emergency medicine but reports that this seems to make symptoms worse and yet when he takes his 's Prilosec he does notice an improvement of his symptoms. Alongside this Prilosec he is also taking Tums and prescribe Zofran. He notes that he is suspicious that his chronic congestion and drainage problems may be making things worse. When inquiring about a history of either heartburn or reflux he notes that it is heartburn mainly. He states that this occurs at least a couple of times per day. He feels that his pain is generally made worse by eating and that this pain seems to follow mealtime almost immediately. He believes that spicy sauces are the most aggravating of the foods that he has tried. He notes minimal experience of reflux. He also confirms some experience of bloating which is relieved with belching. Mr. Caruso also reports a history of diarrhea that he initially states comes and goes but then revise his a statement to say that it is present almost every morning. This occurs with a frequency of 2 stools per morning. He has not noticed any thin, dark, or bloody stools. He notes some occasional straining. His toilet time is limited to 5 to 10 minutes. Has no history of hemorrhoids. He has no history of prior colonoscopy. Patient has no family history of peptic ulcer disease, colon cancer, or inflammatory bowel disease. He does report a history of diverticulitis in his brother and relates that his brother has required some dozen procedures for something on his butt. The patient's weight is stable. The patient is not prescribed anticoagulants/blood thinners. Relevant prior abdominal surgical history includes: None ROS General General: Yes fatigue; No weight change, appetite, colon cancer, breast cancer or weakness HEENT HEENT: No difficulty swallowing, eye injury, eye surgery, swollen glands or hoarseness Endo Endocrine: No thyroid disease, diabetes mellitus, thyroid cancer, Hair loss, heat intolerance or cold intolerance Skin Skin: No rash or changing moles Musc Musculoskeletal: Yes back problems, arthritis and rheumatoid arthritis; No gout or joint pain Cardio Cardiovascular: Yes high blood pressure; No murmur, pacemaker, heart disease, atrial fibrillation, heart attack, heart stent, palpitations, shortness of breat with exertion or chest pain Psych Psychiatric: No depression, anxiety or hearing voices Resp Respiratory: No shortness of breath, Yes sleep apnea, No cough, No COPD, No asthma, No emphysema and No wheezing Gastro Gastrointestinal: Yes abdominal pain, Yes nausea or vomiting, Yes diarrhea, No constipation, No blood in stool, Yes acid reflux, No hemorrhoids, No ulcers, No gallbladder problem and No black,tarry stools Laci Hematologic: No blood thinners, No blood disorders, No bleeding, No anemia and No blood clots Neuro Neurologic: No system reviewed and no additional complaints, except as documented, No as per HPI, No abnormal gait, No abnormal hearing, No abnormal movements, No abnormal speech, No behavioral changes, No burning sensations, No confusion, No convulsions, No disequilibrium, No dizziness, No localized weakness, No frequent falls, No headache(s), No lack of coordination, No loss of vision, No memory loss, No numbness, No other visual disturbances, No radicular pain, No restless legs, No sensory deficit, No syncope, No tingling, No t remor(s), No weakness and No other Exam Const General: cooperative, healthy appearing, comfortable, no acute distress and well developed Orientation: alert, awake and oriented x3 Resp Effort & Inspection: normal respiratory effort GI Other: Slender build, nondistended, no scars, soft, mildly tender to palpation of the epigastrium as well as the left lower quadrant Assessment and Plan Assessment and Plan (1) Postprandial epigastric pain: Status: Acute Comment: This is a 72-year-old male who presents with primary complaint of 3 weeks duration of epigastric discomfort that has its onset immediately after eating. The symptoms have modestly improved with initiation of PPI. Interestingly patient appears to have better efficacy with omeprazole over esomeprazole (Nexium). I have shared with family that this does not make good sense to me based on the common medication but they seem adamant that his symptoms are actually worse on Nexium. He describes frequent heartburn and his history is very consistent with dyspepsia versus peptic ulcer disease. Therefore, I am recommending that we transition him to omeprazole, refill his Zofran, and plan for a diagnostic EGD with testing for H. pylori and evaluation for peptic ulcers. Plan: ? Diagnostic EGD under MAC sedation (2) Diarrhea: Status: Acute Comment: In addition above patient complains of frequent diarrhea and some intermittent left lower quadrant pains. No history of prior colonoscopy. To comprehensively evaluate his symptoms I believe colonoscopy is in order alongside of diagnostic EGD. Plan: Plan will be to complete colonoscopy on date of EGD under local MAC. Pre- procedure prep discussed and paper instructions provided. Patient is also made aware that he will need to have a test car driver with him the day of the procedure. (3) Left lower quadrant pain: Status: Acute Comment: Nonspecific left lower quadrant discomfort that could be signs of colitis. Very minimal tenderness today. As above recommend colonoscopy with EGD Orders: I have examined the patient and the H&P has been reviewed. There are no clinical changes since date of exam. Patient actually confirms that his abdominal discomfort has been improved. He confirms that he completed a prep in anticipation of today's procedure and his output is now clear. He denies any further questions regarding plans for today's endoscopy. Therefore we will proceed with upper and lower endoscopy as discussed in further detail above.
[2022-12-09 09:00] LABS: ALB/GLOB Ratio 1.2 RATIO (0.9-2.4); AST(SGOT) 16 U/L (15-37); Alanine Aminotransfer ALT/SGPT 33 U/L (16-61); Albumin, Serum 4.1 g/dL (3.2-5.0); Alkaline Phosphatase 42 U/L (45-117); Anion Gap 7 (5-15); BUN 7 mg/dL (7-18); Calcium,Total 9.1 mg/dL (8.5-10.1); Chloride 102 mmol/L (98-107); Creatinine, Serum 0.87 mg/dL (0.70-1.30); EST Glomerular Filtration Rate 91 mL/min (>60); Est Glom Filt Rate - Afr Amer 111 mL/min (>60); Estimated Creatinine Clearance 79.25 ml/min; Globulin 3.4 g/dL (2.2-4.2); Glucose 127 mg/dL (74-106); Potassium 4.5 mmol/L (3.5-5.1); Protein, Total 7.5 g/dL (6.4-8.2); Sodium Level 133 mmol/L (136-145)
--- NOTE | 2022-12-09 09:00 | IMM_PTH ---
PATIENT: RORY CARUSO LOC: EN U#:[id number] AGE/SX: 72/M ROOM: RE12/09/[address]: Dr. Kalyan Dixon MD : 1950 BED: DIS: 12/09/2022 SPEC #: [id number] RECD: 12/09/22 13:58 STATUS: VANDANA ROMÁN #: [id number] CARMELO: 12/09/22 09:[address]: Kalyan Dixon DEPT: IMMUNOHISTOCHEMISTRY RECD BY: Lauren Lopez ENTERED: 12/09/22 13:58 SP TYPE: IMMUNO OTHR DR: MD Gonzalo Marvin MD Tissues: A - Stomach, NOS Procedures: H Pylori (initial) PHYSICIAN & INSTITUTION [place] [id number] SPECIMEN INFORMATION: Tissue Source: A - Antrum biopsy Clinical Info: Postprandial epigastric pain, diarrhea, LLQ pain Specimen Number: [id number] CPT code: 76237 METHODOLOGY: Deparaffinized sections of prefer/formalin-fixed tissue or PAP/DQ stained slides are incubated with monoclonal/polyclonal antibodies/oligonucleotide probes. Localization is made via biotin free immunoperoxidase method. Appropriate controls are performed and reacted as expected. Results on target cell population are indicated in the following table: RESULTS: ANTIBODY / CLONE RESULT Block A H Pylori (polyclonal) negative These tests were developed and their performance characteristics determined by [facility]. They may not have been cleared or approved by the [place].S. Food and Drug Administration. The FDA has determined that such clearance or approval is not necessary. The above immunohistochemical/dualISH markers are ordered and reviewed by the Pathologist. INTERPRETATION: A. Antrum, biopsy: Negative for Helicobacter pylori organisms. ARIANA:lashell 12/10/2022
--- NOTE | 2022-12-09 09:59 | OP.CCLET_ITS ---
12/09/2022 Gonzalo Villatoro Md Re : Upper GI endoscopy procedure for Bronson Meadows Dear Shauna This procedure was performed on Friday, December 09, 2022. My impressions and recommendations are as follows: Impressions : - Normal duodenal bulb, first portion of the duodenum and second portion of the duodenum. No specimens collected. - Bilious gastric fluid. - Erythematous mucosa in the antrum. Biopsied. - A few gastric polyps. Biopsied. - Multiple gastric polyps. Resected and retrieved. - Medium-sized hiatal hernia. No specimens collected. - Z-line regular, 45 cm from the incisors. Biopsied. - Multiple plaques in the middle third of the esophagus. Recommendations : - Discharge patient to home (via wheelchair). - Resume previous diet today. - Continue present medications. - Await pathology results. - Telephone my office for pathology results in 1 week. My findings are described in the full procedure note, which is enclosed. If I can be of further assistance, please feel free to contact me at Doctor phone number(s): , Work: . Sincerely, Kalyan Dixon MD 12/09/2022 9:59:33 AM This report has been signed electronically.
--- NOTE | 2022-12-09 09:59 | OP.EGD_ITS ---
Patient Name: Bronson Meadows Procedure Date: 12/09/2022 8:37 AM Date of : 1950 Age: 72 Procedure: Upper GI endoscopy Indications: Abdominal pain in the left upper quadrant, Suspected esophageal reflux Providers: Kalyan Dixon MD Medicines: See the Anesthesia note for documentation of the administered medications Patient Profile: This is a 72 year old male. Patient has symptoms of acute left upper quadrant abdominal pain. Complications: No immediate complications. Estimated blood loss: Minimal. Procedure: Pre-Anesthesia Assessment: - The heart rate, respiratory rate, oxygen saturations, blood pressure, adequacy of pulmonary ventilation, and response to care were monitored throughout the procedure. After obtaining informed consent, the endoscope was passed under direct vision. Throughout the procedure, the patient's blood pressure, pulse, and oxygen saturations were monitored continuously. The Colonoscope was introduced through the mouth, and advanced to the second part of duodenum. The upper GI endoscopy was accomplished without difficulty. The patient tolerated the procedure well. Scope In: 9:01:53 AM Scope Out: 9:20:07 AM Total Procedure Duration Time 0 hours 18 minutes 14 seconds Findings: The duodenal bulb, first portion of the duodenum and second portion of the duodenum were normal. No biopsies or other specimens were collected for this exam. Bilious fluid was found in the stomach. Localized mildly erythematous mucosa without bleeding was found in the gastric antrum. Biopsies were taken with a cold forceps for histology. A few 3 mm pedunculated and sessile polyps with no bleeding and no stigmata of recent bleeding were found on the greater curvature of the stomach. Biopsies were taken with a cold forceps for histology. Estimated blood loss was minimal. Multiple 5 mm pedunculated and sessile polyps with no bleeding and no stigmata of recent bleeding were found in the cardia. The polyp was removed with a hot snare. Resection and retrieval were complete. A medium-sized hiatal hernia was present. No biopsies or other specimens were collected for this exam. The Z-line was regular and was found 45 cm from the incisors. Biopsies were taken with a cold forceps for histology. Estimated blood loss was minimal. Multiple 5 mm plaques were found in the middle third of the esophagus. Estimated blood loss was minimal. Impression: - Normal duodenal bulb, first portion of the duodenum and second portion of the duodenum. No specimens collected. - Bilious gastric fluid. - Erythematous mucosa in the antrum. Biopsied. - A few gastric polyps. Biopsied. - Multiple gastric polyps. Resected and retrieved. - Medium-sized hiatal hernia. No specimens collected. - Z-line regular, 45 cm from the incisors. Biopsied. - Multiple plaques in the middle third of the esophagus. Recommendation: - Discharge patient to home (via wheelchair). - Resume previous diet today. - Continue present medications. - Await pathology results. - Telephone my office for pathology results in 1 week. Procedure Code(s): --- Professional --- 78617, Esophagogastroduodenoscopy, flexible, transoral; with removal of tumor(s), polyp(s), or other lesion(s) by snare technique 31378, 59, Esophagogastroduodenoscopy, flexible, transoral; with biopsy, single or multiple Diagnosis Code(s): --- Professional --- K31.89, Other diseases of stomach and duodenum K31.7, Polyp of stomach and duodenum K44.9, Diaphragmatic hernia without obstruction or gangrene K22.89, Other specified disease of esophagus R10.12, Left upper quadrant pain CPT copyright 2021 [employer] [employer]. All rights reserved. The codes documented in this report are preliminary and upon filer finish review may be revised to meet current compliance requirements. Kalyan Dixon MD 12/09/2022 9:59:33 AM This report has been signed electronically. Number of Addenda: 0 Note Initiated On: 12/09/2022 8:37 AM
--- NOTE | 2022-12-09 10:05 | OP.COLON_ITS ---
Patient Name: Bronson Meadows Procedure Date: 12/09/2022 9:20 AM Date of : 1950 Age: 72 Procedure: Colonoscopy Indications: Chronic diarrhea, Clinically significant diarrhea of unexplained origin Providers: Kalyan Dixon MD Medicines: See the Anesthesia note for documentation of the administered medications Patient Profile: This is a 72 year old male. Patient has symptoms of acute left upper quadrant abdominal pain. Refer to note in patient chart for documentation of history and physical. Last Colonoscopy: none. The patient's first colonoscopy is today. Complications: No immediate complications. Estimated blood loss: Minimal. Procedure: Pre-Anesthesia Assessment: - The heart rate, respiratory rate, oxygen saturations, blood pressure, adequacy of pulmonary ventilation, and response to care were monitored throughout the procedure. After I obtained informed consent, the scope was passed under direct vision. Throughout the procedure, the patient's blood pressure, pulse, and oxygen saturations were monitored continuously. The Colonoscope was introduced through the anus and advanced to the cecum, identified by appendiceal orifice and ileocecal valve. The colonoscopy was performed without difficulty. The patient tolerated the procedure well. The quality of the bowel preparation was adequate to identify polyps. Scope In: 9:22:06 AM Scope Withdrawal Time 0 hours 14 minutes 53 seconds Scope Out: 9:48:06 AM Total Procedure Duration Time 0 hours 26 minutes 0 seconds Findings: The perianal and digital rectal examinations were normal. A 3 mm polyp was found in the sigmoid colon. The polyp was sessile. Biopsies were taken with a cold forceps for histology. Estimated blood loss was minimal. Four biopsies were obtained with cold forceps for histology randomly in the rectum, in the sigmoid colon, in the transverse colon and in the ascending colon. Estimated blood loss was minimal. The exam was otherwise without abnormality on direct and retroflexion views. Impression: - One 3 mm polyp in the sigmoid colon. Biopsied. - The examination was otherwise normal on direct and retroflexion views. - Four biopsies were obtained in the rectum, in the sigmoid colon, in the transverse colon and in the ascending colon. Recommendation: - Discharge patient to home (via wheelchair). - Resume previous diet today. - Continue present medications. - Await pathology results. - Repeat colonoscopy date to be determined after pending pathology results are reviewed for surveillance based on pathology results. - Telephone my office for pathology results in 1 week. Procedure Code(s): --- Professional --- 18862, Colonoscopy, flexible; with biopsy, single or multiple Diagnosis Code(s): --- Professional --- D12.5, Benign neoplasm of sigmoid colon K52.9, Noninfective gastroenteritis and colitis, unspecified R19.7, Diarrhea, unspecified CPT copyright 2021 [employer]. All rights reserved. The codes documented in this report are preliminary and upon skeet operator review may be revised to meet current compliance requirements. Kalyan Dixon MD 12/09/2022 10:05:03 AM This report has been signed electronically. Number of Addenda: 0 Note Initiated On: 12/09/2022 9:20 AM
--- NOTE | 2022-12-09 10:06 | OP.CCLET_ITS ---
12/09/2022 Gonzalo Villatoro Md Re : Colonoscopy procedure for [place] [facility] This procedure was performed on Friday, December 09, 2022. My impressions and recommendations are as follows: Impressions : - One 3 mm polyp in the sigmoid colon. Biopsied. - The examination was otherwise normal on direct and retroflexion views. - Four biopsies were obtained in the rectum, in the sigmoid colon, in the transverse colon and in the ascending colon. Recommendations : - Discharge patient to home (via wheelchair). - Resume previous diet today. - Continue present medications. - Await pathology results. - Repeat colonoscopy date to be determined after pending pathology results are reviewed for surveillance based on pathology results. - Telephone my office for pathology results in 1 week. My findings are described in the full procedure note, which is enclosed. If I can be of further assistance, please feel free to contact me at Doctor phone number(s): , Work: . Sincerely, Kalyan Dixon MD 12/09/2022 10:05:03 AM This report has been signed electronically.
[2022-12-11 05:07] LABS: G6PD Quant Test 261 (127-427); Red Blood Cell Count Test/G6PD 4.12 x10E6/uL (4.14-5.80)
== END 2022-12-09 10:48 | disposition home or self-care (01) ==
LOC: EN 07:45 → AC 07:47
PROVIDERS: PCP Family Medicine; Referring Provider Family Medicine; Visit Provider Surgery
PROC: 0DJD8ZZ Inspection of Lower Intestinal Tract, Via Natural or Artificial Opening Endoscopic (ICD-10-PCS; CPT 45378; principal; 2022-12-09 08:55)
DX: D12.4 Benign neoplasm of descending colon (principal); K44.9 Diaphragmatic hernia without obstruction or gangrene; Z87.891 Personal history of nicotine dependence; K31.7 Polyp of stomach and duodenum; K52.9 Noninfective gastroenteritis and colitis, unspecified; K21.9 Gastro-esophageal reflux disease without esophagitis; Z79.899 Other long term (current) drug therapy; I10 Essential (primary) hypertension; K29.50 Unspecified chronic gastritis without bleeding; Z79.52 Long term (current) use of systemic steroids
CPT/HCPCS: 43239; 43251; 45380; 36415; 80053; 82955; 85025; 88305; 88342; J7120; J2405

== ENCOUNTER → 2023-01-07 | Outpatient (CLI) | payer MEDICARE, SELFPAY ==
[2023-01-07 10:49] LABS: Absolute Lymphocyte Count 2.02 X10^3/uL (0.83-4.51); Absolute Neutrophil Count 2.7 X10^3/uL (2.0-7.7); Basophil# 0.05 X10^3/uL; Basophil% 0.9 % (0-1); Eosinophil# 0.23 X10^3/uL; Eosinophils% 4.1 % (0-5); Hematocrit 36.4 % (40-54); Hemoglobin 12.7 g/dL (13.0-16.5); Lymphocyte # 2.02 X10^3/ul (0.83-4.51); Lymphocyte % 36.1 % (19-41); Mean Corp Hgb Conc 34.9 g/dL (32-36); Mean Corpuscular Hgb 32.6 pg (27.0-32.0); Mean Corpuscular Volume 93.6 fL (80-94); Mean Platelet Vol. 8.7 fl (6.2-12.0); Monocyte# 0.61 X10^3/uL; Monocyte% 10.9 % (0-10); NRBC Flagged by Analyzer 0 % (0-5); Neutrophil # 2.67 X10^3/uL (2.7-7.7); Neutrophil % 47.8 % (47-70); Platelet Count 251 K/mm3 (150-450); RBC Distribution Width SD 44.2 fl (35.1-43.9); Red Blood Count 3.89 M/mm3 (4.6-6.2); White Blood Count 5.6 K/mm3 (4.4-11.0)
[2023-01-07 11:29] LABS: ALB/GLOB Ratio 1.2 RATIO (0.9-2.4); AST(SGOT) 15 U/L (15-37); Alanine Aminotransfer ALT/SGPT 27 U/L (16-61); Albumin, Serum 3.8 g/dL (3.2-5.0); Alkaline Phosphatase 42 U/L (45-117); Anion Gap 6 (5-15); BUN 10 mg/dL (7-18); BUN/Creat Ratio 10.2 RATIO (10-20); Calcium,Total 8.5 mg/dL (8.5-10.1); Chloride 103 mmol/L (98-107); Creatinine, Serum 0.98 mg/dL (0.70-1.30); EST Glomerular Filtration Rate 80 mL/min (>60); Est Glom Filt Rate - Afr Amer 97 mL/min (>60); Globulin 3.2 g/dL (2.2-4.2); Glucose 85 mg/dL (74-106); Potassium 4.5 mmol/L (3.5-5.1); Sodium Level 132 mmol/L (136-145)
== END | disposition home or self-care (01) ==
PROVIDERS: PCP Family Medicine; Referring Provider Internal Medicine Rheumatology; Visit Provider Internal Medicine Rheumatology
DX: M06.4 Inflammatory polyarthropathy (principal); Z79.899 Other long term (current) drug therapy
CPT/HCPCS: 36415; 80053; 85025

== ENCOUNTER → 2023-02-18 | Outpatient (CLI) | payer MEDICARE, SELFPAY ==
[2023-02-18 12:26] LABS: Absolute Lymphocyte Count 2.36 X10^3/uL (0.83-4.51); Absolute Neutrophil Count 10.1 X10^3/uL (2.0-7.7); Basophil# 0.06 X10^3/uL; Basophil% 0.4 % (0-1); Eosinophil# 0.11 X10^3/uL; Eosinophils% 0.8 % (0-5); Hemoglobin 13.5 g/dL (13.0-16.5); Lymphocyte # 2.36 X10^3/ul (0.83-4.51); Lymphocyte % 16.7 % (19-41); Mean Corp Hgb Conc 34.6 g/dL (32-36); Mean Corpuscular Hgb 32.1 pg (27.0-32.0); Mean Corpuscular Volume 92.9 fL (80-94); Mean Platelet Vol. 8.8 fl (6.2-12.0); Monocyte# 1.42 X10^3/uL; Monocyte% 10.1 % (0-10); NRBC Flagged by Analyzer 0 % (0-5); Neutrophil # 10.05 X10^3/uL (2.7-7.7); Neutrophil % 71.2 % (47-70); Platelet Count 296 K/mm3 (150-450); RBC Distribution Width CV 12.5 % (11.6-14.6); RBC Distribution Width SD 42.6 fl (35.1-43.9); White Blood Count 14.1 K/mm3 (4.4-11.0)
[2023-02-18 13:12] LABS: ALB/GLOB Ratio 1.1 RATIO (0.9-2.4); AST(SGOT) 14 U/L (15-37); Alanine Aminotransfer ALT/SGPT 38 U/L (16-61); Albumin, Serum 3.8 g/dL (3.2-5.0); Alkaline Phosphatase 43 U/L (45-117); Anion Gap 8 (5-15); BUN 15 mg/dL (7-18); BUN/Creat Ratio 14.7 RATIO (10-20); Calcium,Total 9.6 mg/dL (8.5-10.1); Chloride 100 mmol/L (98-107); Creatinine, Serum 1.02 mg/dL (0.70-1.30); EST Glomerular Filtration Rate 76 mL/min (>60); Est Glom Filt Rate - Afr Amer 92 mL/min (>60); Globulin 3.4 g/dL (2.2-4.2); Glucose 88 mg/dL (74-106); Potassium 4.2 mmol/L (3.5-5.1); Protein, Total 7.2 g/dL (6.4-8.2); Sodium Level 131 mmol/L (136-145)
== END | disposition home or self-care (01) ==
PROVIDERS: PCP Family Medicine; Referring Provider Internal Medicine Rheumatology; Visit Provider Internal Medicine Rheumatology
DX: M06.4 Inflammatory polyarthropathy (principal); Z79.899 Other long term (current) drug therapy
CPT/HCPCS: 36415; 80053; 85025

== ENCOUNTER → 2023-05-18 | Outpatient (CLI) | payer MEDICARE, SELFPAY ==
[2023-05-18 10:07] LABS: Absolute Lymphocyte Count 2.67 X10^3/uL (0.83-4.51); Absolute Neutrophil Count 3.2 X10^3/uL (2.0-7.7); Basophil# 0.07 X10^3/uL; Eosinophil# 0.21 X10^3/uL; Hematocrit 37.8 % (40-54); Hemoglobin 13.2 g/dL (13.0-16.5); Lymphocyte # 2.67 X10^3/ul (0.83-4.51); Lymphocyte % 37.6 % (19-41); Mean Corp Hgb Conc 34.9 g/dL (32-36); Mean Corpuscular Hgb 31.9 pg (27.0-32.0); Mean Corpuscular Volume 91.3 fL (80-94); Mean Platelet Vol. 8.6 fl (6.2-12.0); Monocyte% 12.7 % (0-10); NRBC Flagged by Analyzer 0 % (0-5); Neutrophil # 3.23 X10^3/uL (2.7-7.7); Neutrophil % 45.4 % (47-70); Platelet Count 269 K/mm3 (150-450); RBC Distribution Width CV 12.8 % (11.6-14.6); RBC Distribution Width SD 42.3 fl (35.1-43.9); Red Blood Count 4.14 M/mm3 (4.6-6.2); White Blood Count 7.1 K/mm3 (4.4-11.0)
[2023-05-18 10:44] LABS: ALB/GLOB Ratio 1.3 RATIO (0.9-2.4); AST(SGOT) 20 U/L (15-37); Alanine Aminotransfer ALT/SGPT 34 U/L (16-61); Albumin, Serum 3.9 g/dL (3.2-5.0); Alkaline Phosphatase 36 U/L (45-117); Anion Gap 8 (5-15); BUN 10 mg/dL (7-18); BUN/Creat Ratio 11.6 RATIO (10-20); Calcium,Total 8.9 mg/dL (8.5-10.1); Chloride 99 mmol/L (98-107); Creatinine, Serum 0.86 mg/dL (0.70-1.30); EST Glomerular Filtration Rate 92 mL/min (>60); Est Glom Filt Rate - Afr Amer 112 mL/min (>60); Glucose 76 mg/dL (74-106); Potassium 4.4 mmol/L (3.5-5.1); Protein, Total 6.9 g/dL (6.4-8.2); Sodium Level 131 mmol/L (136-145)
== END | disposition home or self-care (01) ==
PROVIDERS: PCP Family Medicine; Referring Provider Internal Medicine Rheumatology; Visit Provider Internal Medicine Rheumatology
DX: M06.4 Inflammatory polyarthropathy (principal); Z79.899 Other long term (current) drug therapy
CPT/HCPCS: 36415; 80053; 85025

== ENCOUNTER → 2023-08-10 | Outpatient (CLI) | payer MEDICARE, SELFPAY ==
[2023-08-10 10:10] LABS: Absolute Lymphocyte Count 2.72 X10^3/uL (0.83-4.51); Absolute Neutrophil Count 2.5 X10^3/uL (2.0-7.7); Basophil# 0.07 X10^3/uL; Basophil% 1.1 % (0-1); Eosinophil# 0.17 X10^3/uL; Eosinophils% 2.7 % (0-5); Hematocrit 37.2 % (40-54); Hemoglobin 13.1 g/dL (13.0-16.5); Lymphocyte # 2.72 X10^3/ul (0.83-4.51); Lymphocyte % 43.5 % (19-41); Mean Corp Hgb Conc 35.2 g/dL (32-36); Mean Corpuscular Hgb 32.5 pg (27.0-32.0); Mean Corpuscular Volume 92.3 fL (80-94); Mean Platelet Vol. 8.4 fl (6.2-12.0); Monocyte# 0.75 X10^3/uL; NRBC Flagged by Analyzer 0 % (0-5); Neutrophil # 2.53 X10^3/uL (2.7-7.7); Neutrophil % 40.5 % (47-70); Platelet Count 247 K/mm3 (150-450); RBC Distribution Width CV 13.2 % (11.6-14.6); RBC Distribution Width SD 43.7 fl (35.1-43.9); Red Blood Count 4.03 M/mm3 (4.6-6.2); White Blood Count 6.3 K/mm3 (4.4-11.0)
[2023-08-10 10:44] LABS: ALB/GLOB Ratio 1.3 RATIO (0.9-2.4); AST(SGOT) 21 U/L (15-37); Alanine Aminotransfer ALT/SGPT 33 U/L (16-61); Albumin, Serum 3.9 g/dL (3.2-5.0); Alkaline Phosphatase 34 U/L (45-117); Anion Gap 8 (5-15); BUN 11 mg/dL (7-18); Chloride 101 mmol/L (98-107); EST Glomerular Filtration Rate 70 mL/min (>60); Est Glom Filt Rate - Afr Amer 85 mL/min (>60); Globulin 3.1 g/dL (2.2-4.2); Glucose 100 mg/dL (74-106); Potassium 4.5 mmol/L (3.5-5.1); Sodium Level 132 mmol/L (136-145)
== END | disposition home or self-care (01) ==
LOC: MTLAB 08:45
PROVIDERS: PCP Family Medicine; Referring Provider Internal Medicine Rheumatology; Visit Provider Internal Medicine Rheumatology
DX: M06.4 Inflammatory polyarthropathy (principal); I10 Essential (primary) hypertension; E78.5 Hyperlipidemia, unspecified; N40.0 Benign prostatic hyperplasia without lower urinary tract symptoms; J30.2 Other seasonal allergic rhinitis; Z79.899 Other long term (current) drug therapy
CPT/HCPCS: 36415; 80053; 85025

== ENCOUNTER → 2023-11-02 | Outpatient (CLI) | payer MEDICARE, SELFPAY ==
[2023-11-02 10:32] LABS: Absolute Lymphocyte Count 2.19 X10^3/uL (0.83-4.51); Absolute Neutrophil Count 3.3 X10^3/uL (2.0-7.7); Basophil# 0.06 X10^3/uL; Basophil% 0.9 % (0-1); Eosinophil# 0.19 X10^3/uL; Eosinophils% 2.9 % (0-5); Hematocrit 37.3 % (40-54); Hemoglobin 12.7 g/dL (13.0-16.5); Lymphocyte # 2.19 X10^3/ul (0.83-4.51); Lymphocyte % 33.4 % (19-41); Mean Corpuscular Hgb 31.9 pg (27.0-32.0); Mean Corpuscular Volume 93.7 fL (80-94); Mean Platelet Vol. 8.9 fl (6.2-12.0); Monocyte# 0.78 X10^3/uL; Monocyte% 11.9 % (0-10); NRBC Flagged by Analyzer 0 % (0-5); Neutrophil # 3.32 X10^3/uL (2.7-7.7); Neutrophil % 50.6 % (47-70); Platelet Count 256 K/mm3 (150-450); RBC Distribution Width CV 13.2 % (11.6-14.6); RBC Distribution Width SD 44.7 fl (35.1-43.9); Red Blood Count 3.98 M/mm3 (4.6-6.2); White Blood Count 6.6 K/mm3 (4.4-11.0)
[2023-11-02 11:07] LABS: ALB/GLOB Ratio 1.2 RATIO (0.9-2.4); AST(SGOT) 34 U/L (15-37); Alanine Aminotransfer ALT/SGPT 44 U/L (16-61); Albumin, Serum 3.8 g/dL (3.2-5.0); Alkaline Phosphatase 40 U/L (45-117); Anion Gap 9 (5-15); BUN 8 mg/dL (7-18); BUN/Creat Ratio 7.1 RATIO (10-20); Calcium,Total 9.1 mg/dL (8.5-10.1); Chloride 99 mmol/L (98-107); Creatinine, Serum 1.12 mg/dL (0.70-1.30); EST Glomerular Filtration Rate 68 mL/min (>60); Est Glom Filt Rate - Afr Amer 83 mL/min (>60); Globulin 3.3 g/dL (2.2-4.2); Glucose 98 mg/dL (74-106); Potassium 4.6 mmol/L (3.5-5.1); Protein, Total 7.1 g/dL (6.4-8.2); Sodium Level 131 mmol/L (136-145)
== END | disposition home or self-care (01) ==
PROVIDERS: PCP Family Medicine; Referring Provider Internal Medicine Rheumatology; Visit Provider Internal Medicine Rheumatology
DX: M06.4 Inflammatory polyarthropathy (principal); Z79.899 Other long term (current) drug therapy
CPT/HCPCS: 36415; 80053; 85025

== ENCOUNTER → 2024-01-18 | Outpatient (CLI) | payer MEDICARE, SELFPAY ==
[2024-01-18 12:30] LABS: Absolute Lymphocyte Count 2.11 X10^3/uL (0.83-4.51); Absolute Neutrophil Count 2.5 X10^3/uL (2.0-7.7); Basophil# 0.05 X10^3/uL; Basophil% 0.9 % (0-1); Eosinophil# 0.16 X10^3/uL; Hematocrit 35.1 % (40-54); Hemoglobin 12.3 g/dL (13.0-16.5); Lymphocyte # 2.11 X10^3/ul (0.83-4.51); Lymphocyte % 39.1 % (19-41); Mean Corpuscular Hgb 32.9 pg (27.0-32.0); Mean Corpuscular Volume 93.9 fL (80-94); Mean Platelet Vol. 9.1 fl (6.2-12.0); Monocyte% 11.1 % (0-10); NRBC Flagged by Analyzer 0 % (0-5); Neutrophil # 2.46 X10^3/uL (2.7-7.7); Neutrophil % 45.5 % (47-70); Platelet Count 247 K/mm3 (150-450); RBC Distribution Width SD 44.3 fl (35.1-43.9); Red Blood Count 3.74 M/mm3 (4.6-6.2); White Blood Count 5.4 K/mm3 (4.4-11.0)
[2024-01-18 12:38] LABS: ALB/GLOB Ratio 1.2 RATIO (0.9-2.4); AST(SGOT) 21 U/L (15-37); Alanine Aminotransfer ALT/SGPT 35 U/L (16-61); Albumin, Serum 3.7 g/dL (3.2-5.0); Alkaline Phosphatase 37 U/L (45-117); Anion Gap 8 (5-15); BUN 8 mg/dL (7-18); Calcium,Total 9.1 mg/dL (8.5-10.1); Chloride 97 mmol/L (98-107); EST Glomerular Filtration Rate 78 mL/min (>60); Est Glom Filt Rate - Afr Amer 94 mL/min (>60); Globulin 3.1 g/dL (2.2-4.2); Glucose 124 mg/dL (74-106); Potassium 4.2 mmol/L (3.5-5.1); Protein, Total 6.8 g/dL (6.4-8.2); Sodium Level 129 mmol/L (136-145)
== END | disposition home or self-care (01) ==
PROVIDERS: PCP Family Medicine; Referring Provider Internal Medicine Rheumatology; Visit Provider Internal Medicine Rheumatology
DX: M06.4 Inflammatory polyarthropathy (principal); Z79.899 Other long term (current) drug therapy
CPT/HCPCS: 36415; 80053; 85025

== ENCOUNTER 2024-02-18 09:39 | Emergency (ER) | payer MEDICARE, SELFPAY ==
[2024-02-18] VITALS (7 sets, daily range): BP systolic 123–145; BP diastolic 68–94; PULSE 59–78; RESP 14–16; TEMP 36.6–36.7; O2SAT 95–100; BMI 23.7
--- NOTE | 2024-02-18 10:26 | EKG12_ITS ---
Test Reason : SOB Blood Pressure : */* mmHG Vent. 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
--- NOTE | 2024-02-18 10:39 | EDS_ITS ---
HPI History of Present Illness Chief Complaint: Hypertension Informant: patient and spouse/S.O. Narrative Narrative: Patient is 73-year-old male with history of rheumatoid arthritis, polymyalgia rheumatica (on methotrexate), hypertension and hyperlipidemia as well as gastritis presenting presenting with elevated blood pressures at night with associated headache and chest discomfort. Patient states is been going on for couple weeks. He notes that he takes lisinopril 20 mg daily has had no change in that medication recently. States he is been compliant with his medicine. While we will get a headache and take his blood pressure and his blood pressure will be 200/100. He has appointment to see his primary care doctor tomorrow but did not feel like he could wait anymore. He notes that will intermittently get chest pain that is more sternal. He states sometimes will have a brief episode of sharp pain and other times will be more of a pressure. He currently states it feels like there is a block on his chest. It radiates up slightly but does not go into his neck or jaw. No radiation to his back or shoulders. Denies any aggravating or alleviating factors. Does have intermittent episodes also where he cannot catch his breath. Does have chronic cough but notes has been worse lately and he has been having some phlegm production. Was more recently started on meloxicam for his arthritis as well as tramadol but states he is not really been taking it regularly. Denies any black or blood in his stool. Denies any associate abdominal pain. Notes that he has been getting lightheaded more frequently as well and sometimes feels like he is going to pass out. It seems to be worse when he bends over and then stands up. Denies any history of DVT or PE. Denies any swelling of his legs. No other complaints or concerns reported at this time. [facility] Medical History Allergic conjunctivitis Allergic rhinosinusitis Wears glasses Prostate disease Gastric reflux Thrombocytosis Normocytic anemia Polymyalgia rheumatica BPH (benign prostatic hyperplasia) Chronic hyponatremia Acute hyponatremia High cholesterol Hypertension Back pain Arthritis Home Medications ?Medication ?Instructions ?Recorded ?Last Taken ?Type cyclobenzaprine 10 mg tablet 10 mg PO TID PRN muscle spasm #30 06/13/17 Unknown Rx tabs lisinopril 20 mg tablet 20 mg PO DAILY blood pressure 01/11/21 Unknown History rosuvastatin 20 mg tablet 20 mg PO DAILY cholesterol 01/11/21 Unknown History tamsulosin 0.4 mg capsule 0.4 mg PO DAILY prostate 01/11/21 Unknown History folic acid 1 mg tablet 1 mg PO DAILY 11/09/22 11/06/22 History meloxicam 15 mg tablet 15 mg PO DAILY 11/26/22 Unknown History tramadol 50 mg tablet 50 mg PO BID PRN pain 11/26/22 Unknown History montelukast 10 mg tablet 10 mg PO DAILY 12/04/22 Unknown History olopatadine 0.2 % eye drops 1 drp ophthalmic (eye) QAM #2.5 mL 11/04/23 Unknown Rx omeprazole 20 mg capsule,delayed 20 mg PO DAILY #30 caps 02/18/24 Unknown Rx release Allergy/AdvReac Type Severity Reaction Status Date / Time Sulfa (Sulfonamide Allergy Intermediate Rash Verified 02/18/24 09:39 Antibiotics) Social History Smoking Status: Never smoker alcohol intake: current alcohol intake frequency: 3 or more drinks per day Alcohol type: beer substance use type: does not use ROS ROS ED Constitutional Constitutional ED: Reports other Details: Lightheaded ; Denies chills or fever(s) Cardiovascular Cardiovascular: Reports chest pain; Denies palpitations or racing heartbeat Respiratory/Chest Respiratory/Chest: Reports cough, dyspnea and sputum Gastrointestinal Gastrointestinal: Reports diarrhea, nausea and other Details: Chronic loose stools/diarrhea ; Denies abdominal pain or vomiting Musculoskeletal Musculoskeletal: Reports arthralgias; Denies myalgias Integumentary Denies rash Neurologic Neurologic: Reports headache(s); Denies paresthesias or weakness Hematologic/Lymphatic Hematologic/Lymphatic: Denies easy bleeding or easy bruising EXAM Physical Exam Const Vital Signs: 02/18/24 09:39 02/18/24 09:40 02/18/24 10:39 Temperature 98.1 F Temperature Source Oral Pulse Rate 78 59 L Pulse Rate [Lying] Pulse Rate [Sitting (for 1 minute prior to obtaining)] Pulse Rate [Standing (for 1 minute prior to obtaining)] Respiratory Rate 16 15 Respiratory Effort Normal Non-Labored Blood Pressure 141/80 H Blood Pressure [Lying] Blood Pressure [Sitting (for 1 minute prior to obtaining)] Blood Pressure [Standing (for 1 minute prior to obtaining)] Blood Pressure Mean 100 Blood Pressure Mean [Lying] Blood Pressure Mean [Sitting (for 1 minute prior to obtaining)] Blood Pressure Mean [Standing (for 1 minute prior to obtaining)] Pulse Ox 100 95 Oxygen Delivery Method Room Air 02/18/24 12:00 02/18/24 12:46 02/18/24 13:00 Temperature Temperature Source Pulse Rate 65 61 Pulse Rate [Lying] 63 Pulse Rate [Sitting (for 1 minute prior to obtaining)] 67 Pulse Rate [Standing (for 1 minute prior to obtaining)] 78 Respiratory Rate 16 14 Respiratory Effort Blood Pressure 136/68 H 145/76 H Blood Pressure [Lying] 142/78 H Blood Pressure [Sitting (for 1 minute prior to obtaining)] 138/94 H Blood Pressure [Standing (for 1 minute prior to obtaining)] 123/94 H Blood Pressure Mean 90 99 Blood Pressure Mean [Lying] 99 Blood Pressure Mean [Sitting (for 1 minute prior to obtaining)] 108 Blood Pressure Mean [Standing (for 1 minute prior to obtaining)] 103 Pulse Ox 98 95 Oxygen Delivery Method Room Air 02/18/24 13:00 Temperature Temperature Source Pulse Rate 62 Pulse Rate [Lying] Pulse Rate [Sitting (for 1 minute prior to obtaining)] Pulse Rate [Standing (for 1 minute prior to obtaining)] Respiratory Rate 15 Respiratory Effort Blood Pressure 145/76 H Blood Pressure [Lying] Blood Pressure [Sitting (for 1 minute prior to obtaining)] Blood Pressure [Standing (for 1 minute prior to obtaining)] Blood Pressure Mean 99 Blood Pressure Mean [Lying] Blood Pressure Mean [Sitting (for 1 minute prior to obtaining)] Blood Pressure Mean [Standing (for 1 minute prior to obtaining)] Pulse Ox 100 Oxygen Delivery Method Room Air Positive well nourished and well developed General Appearance ED: well developed and NAD HEENT HEENT Narrative: Mildly dry mucosal membranes Eyes PERRL and EOMs intact bilaterally Neck supple and no JVD Chest Wall inspection of chest normal Chest Narrative: No chest wall crepitus. Very mild discomfort with palpation of the sternum Resp normal respiratory effort and clear to auscultation bilaterally Auscultation: Negative for rales, rhonchi, wheezes or diminished lung sounds Cardio regular rate, regular rhythm and no murmurs GI normal to inspection, nondistended, normoactive bowel sounds and non-tender Palpation: soft; Negative for tender or guarding Back/Spine no CVA tenderness Extremity normal to inspection General Extremety ED: Negative for edema General Extremity: Negative for edema Neuro oriented x3 Sensorium / Orientation: alert Motor Exam: Negative for general weakness Psych mental status grossly normal Skin no rashes or lesions noted and no wounds MDM MDM MDM Narrative Medical decision making narrative: Patient is evaluated for headache, elevated blood pressures especially at night, intermittent chest pain and shortness of breath. Has had a cough with phlegm production. He also states has been getting more lightheaded. Differential includes viral syndrome, asymptomatic hypertension, tension headache, ACS, pulmonary emboli, pneumonia, pneumothorax, GERD, referred abdominal pain. Symptomatic anemia, arrhythmia, orthostasis and hypovolemia also on the differential. Workup largely normal. Patient has a normal CBC. D-dimer elevated but normal for age and I will have a low special for PE. Do not think CT is indicated. BMP shows mild hyponatremia with a sodium of 131 which is actually slightly improved from sodium on 01/17 of 129. Patient is on lisinopril. High sensitive troponin normal x 2 at 4 with no delta. Chest x-ray 2 views reviewed by myself as well as radiology does not show any acute process. COVID, flu and RSV swab are negative. Patient is symptomatic with orthostatics and does have a mild elevation heart rate and decrease in blood pressure with him but he is not truly positive. Is given a liter of IV fluid. Discussed that the exact cause of symptoms is not clear. His blood pressure is only minimally elevated in the ER and I do not think this is a hypertensive emergency. I do not think he requires adjustments to his blood pressure medicine at this time. He is going in for blood pressure check tomorrow in the office. Is counseled to continue follow-up. He does have a history of gastritis and is no longer on PPI but also taking meloxicam. Will restart him on omeprazole as well. Patient is given return precautions. At this time I feel that he stable for outpatient follow-up. Patient verbalized agreement or stands plan. Did discuss taking Tylenol as needed for pain. Lab Data Attestation: I reviewed the patient's lab results. Labs: Laboratory Results - last 24 hr 02/18/24 02/18/24 10:58 12:56 WBC 6.5 RBC 4.21 L Hgb 13.6 Hct 39.4 L MCV 93.6 MCH 32.3 H MCHC 34.5 RDW Std Deviation 44.2 H RDW Coeff of [place] 13.1 Plt Count 233 MPV 8.5 Immature Gran % (Auto) 0.300 Neut % (Auto) 59.4 Lymph % (Auto) 26.4 [place] % (Auto) 11.4 H Eos % (Auto) 1.7 Baso % (Auto) 0.8 Absolute Neuts (auto) 3.9 Absolute Lymphs (auto) 1.72 Nucleated RBC % 0 D-Dimer Quant (PE/DVT) 0.52 H* Sodium 131 L Potassium 4.5 Chloride 99 Carbon Dioxide 24.0 Anion Gap 8 BUN 10 Creatinine 1.04 Estim Creat Clear Calc 65.32 Est GFR (MDRD) Af Amer 90 Est GFR (MDRD) Non-Af 74 BUN/Creatinine Ratio 9.6 L Glucose 103 Calcium 8.9 Total Bilirubin 0.50 AST 19 ALT 27 Alkaline Phosphatase 38 L Troponin I High Sens 4 4 Total Protein 7.0 Albumin 3.8 Globulin 3.2 Albumin/Globulin Ratio 1.2 Lipase 56 Radiography Diagnostic Testing: Clinical Impression(s) from Imaging Studies Chest X-Ray 02/18/24 14:00 IMPRESSION: No radiographic evidence of acute cardiopulmonary disease. Electronically Signed: Sharon Hinojosa MD at 14:20 EST Reading Location ID and State: [facility], [facility] [place] Tel , Service support , Rhythm Strip Rhythm Strip: Sinus Rhythm Rate: 67 Ectopy: None EKG Initial EKG: Attestation: I personally reviewed and interpreted this EKG as follows: Interpretation: Sinus Rhythm Comments: Normal sinus rhythm at a rate of 67 bpm Left axis deviation Minimal voltage criteria for LVH Normal ST segments Prior EKG tracings: available for review Prior: Unchanged Discharge Plan Triage Chief Complaint: Hypertension ED Provider: Heidi Watson Dx/Rx/DC Orders Clinical Impression: Headache, Abnormal blood pressure, Chest pain Instructions: ED Chest Pain, Uncertain Cause, ED Hypertension, Established Prescriptions: Continued omeprazole 20 mg capsule,delayed release(DR/EC) 20 mg PO DAILY Qty: 30 1RF No Action cyclobenzaprine 10 mg tablet 10 mg PO TID PRN (Reason: muscle spasm) Qty: 30 0RF meloxicam 15 mg tablet 15 mg PO DAILY tramadol 50 mg tablet 50 mg PO BID PRN (Reason: pain) olopatadine 0.2 % drops 1 drp ophthalmic (eye) QAM Qty: 2.5 1RF Rx Instructions: to both eyes lisinopril 20 mg tablet 20 mg PO DAILY Patient Comments: take 1 tablet by mouth once daily tamsulosin 0.4 mg capsule 0.4 mg PO DAILY Patient Comments: take 1 capsule by mouth once daily rosuvastatin 20 mg tablet 20 mg PO DAILY Patient Comments: take 1 tablet by mouth once daily folic acid 1 mg tablet 1 mg PO DAILY Patient Comments: TAKE 2 TABLETS BY MOUTH EVERY DAY montelukast 10 mg tablet 10 mg PO DAILY Patient Comments: TAKE 1 TABLET BY MOUTH EVERY DAY Primary Care Provider: Gonzalo Villatoro Referrals: Gonzalo Villatoro MD [Primary Care Provider] - Activity Restrictions/Additional Instructions: your workup today was very reassuring. No signs of acute stress on the heart, heart attack, pneumonia or other more severe process. I suspect he did have some associated dehydration. You are given IV fluids. Please follow-up with blood pressure check with your primary care doctor for further evaluation of your symptoms. You will be restarted on stomach medicine (omeprazole). Take Tylenol as needed for headache and discomfort. If you have a progression worsening your symptoms please return to the emergency room. Print Language: Montserratian Disposition Disposition: Home, Self Care
[2024-02-18 11:10] LABS: Absolute Lymphocyte Count 1.72 X10^3/uL (0.83-4.51); Absolute Neutrophil Count 3.9 X10^3/uL (2.0-7.7); Basophil# 0.05 X10^3/uL; Basophil% 0.8 % (0-1); Eosinophil# 0.11 X10^3/uL; Eosinophils% 1.7 % (0-5); Hematocrit 39.4 % (40-54); Hemoglobin 13.6 g/dL (13.0-16.5); Lymphocyte # 1.72 X10^3/ul (0.83-4.51); Lymphocyte % 26.4 % (19-41); Mean Corp Hgb Conc 34.5 g/dL (32-36); Mean Corpuscular Hgb 32.3 pg (27.0-32.0); Mean Corpuscular Volume 93.6 fL (80-94); Mean Platelet Vol. 8.5 fl (6.2-12.0); Monocyte# 0.74 X10^3/uL; Monocyte% 11.4 % (0-10); NRBC Flagged by Analyzer 0 % (0-5); Neutrophil # 3.87 X10^3/uL (2.7-7.7); Neutrophil % 59.4 % (47-70); Platelet Count 233 K/mm3 (150-450); RBC Distribution Width CV 13.1 % (11.6-14.6); RBC Distribution Width SD 44.2 fl (35.1-43.9); Red Blood Count 4.21 M/mm3 (4.6-6.2); White Blood Count 6.5 K/mm3 (4.4-11.0)
[2024-02-18 11:27] LABS: ALB/GLOB Ratio 1.2 RATIO (0.9-2.4); AST(SGOT) 19 U/L (15-37); Alanine Aminotransfer ALT/SGPT 27 U/L (16-61); Albumin, Serum 3.8 g/dL (3.2-5.0); Alkaline Phosphatase 38 U/L (45-117); Anion Gap 8 (5-15); BUN 10 mg/dL (7-18); BUN/Creat Ratio 9.6 RATIO (10-20); Calcium,Total 8.9 mg/dL (8.5-10.1); Chloride 99 mmol/L (98-107); Creatinine, Serum 1.04 mg/dL (0.70-1.30); EST Glomerular Filtration Rate 74 mL/min (>60); Est Glom Filt Rate - Afr Amer 90 mL/min (>60); Estimated Creatinine Clearance 65.32 ml/min; Globulin 3.2 g/dL (2.2-4.2); Glucose 103 mg/dL (74-106); Lipase 56 U/L (13-75); Potassium 4.5 mmol/L (3.5-5.1); Sodium Level 131 mmol/L (136-145); Troponin-I HS (w/2H Reflex) 4 pg/mL (3.0-78.0)
[2024-02-18 11:52] LABS: D-Dimer Quantitative (DVT/PE) 0.52 FEU/ug/m (0.27-0.49)
[2024-02-18] MEDS: 0.9% Normal Saline (1000mL) 1,000 ML 999 ML IV (13:03)
[2024-02-18 13:05] LABS: Reflex Troponin-HS? (from REC) Y
[2024-02-18 13:34] LABS: Troponin-I HS 4 pg/mL (3.0-78.0)
--- NOTE | 2024-02-18 14:00 | RAD_ITS ---
INDICATION: cough EXAMINATION/TECHNIQUE: X-RAY - XR Chest 2 Views COMPARISON: September 24, 2015 FINDINGS: LINES/DEVICES: None. LUNGS: No consolidation, edema or effusion. No pneumothorax. MEDIASTINUM AND CARDIOVASCULAR STRUCTURES: Cardiac silhouette not enlarged. Central airways and mediastinal contour are unremarkable. BONES AND SOFT TISSUES: Unremarkable. RAD/Chest PA and Lateral IMPRESSION: No radiographic evidence of acute cardiopulmonary disease. Electronically Signed: Sharon Hinojosa MD at 14:20 EST ,
== END 2024-02-18 14:54 | disposition home or self-care (01) ==
PROVIDERS: Emergency Provider Emergency Medicine; PCP Family Medicine; Visit Provider Emergency Medicine
DX: R51.9 Headache, unspecified (principal); R07.9 Chest pain, unspecified; I10 Essential (primary) hypertension; E78.00 Pure hypercholesterolemia, unspecified; E87.1 Hypo-osmolality and hyponatremia; Z79.899 Other long term (current) drug therapy; K21.9 Gastro-esophageal reflux disease without esophagitis; R05.9 Cough, unspecified; R06.02 Shortness of breath
CPT/HCPCS: 71046; 80053; 83690; 84484; 85025; 85379; 87631; 93005; 96360; 96361; 99285; A4216

== ENCOUNTER → 2024-03-07 | Outpatient (CLI) | payer MEDICARE, SELFPAY ==
--- NOTE | 2024-03-07 09:21 | RAD_ITS ---
STUDY: X-RAY - RIGHT HAND REASON FOR EXAM: Male, 73 years old. Right hand injury -- possible metal fb TECHNIQUE: 3 view(s) of the hand. COMPARISON: None. FINDINGS: Normal radiocarpal articulation. Normal distal radioulnar joint. Normal visualized carpal bones. Normal carpal articulations Normal carpometacarpal articulation of the thumb. Normal second through fifth carpometacarpal joints. Normal metacarpi. Normal metacarpophalangeal joint of the thumb. Normal interphalangeal joint of the thumb. Normal proximal and distal phalanges of the thumb. Normal metacarpophalangeal joints of the second through fifth fingers. There is articular joint space narrowing of the proximal and distal interphalangeal joints of the second through fifth fingers, but without erosive changes or periarticular soft tissue swelling. Normal phalanges of the second through fifth fingers. The soft tissue structures are unremarkable. 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 No radiopaque foreign body is seen. Electronically Signed: Nguyễn Herman MD at 9:44 EST ,
== END | disposition home or self-care (01) ==
LOC: MTRAD 09:21
PROVIDERS: PCP Family Medicine; Referring Provider Physician Assistant; Visit Provider Physician Assistant
DX: S69.91XA Unspecified injury of right wrist, hand and finger(s), initial encounter (principal); X58.XXXA Exposure to other specified factors, initial encounter
CPT/HCPCS: 73130

== ENCOUNTER → 2024-04-18 | Outpatient (CLI) | payer MEDICARE, SELFPAY ==
[2024-04-18 10:48] LABS: Absolute Lymphocyte Count 2.23 X10^3/uL (0.83-4.51); Absolute Neutrophil Count 2.7 X10^3/uL (2.0-7.7); Basophil# 0.04 X10^3/uL; Basophil% 0.7 % (0-1); Eosinophil# 0.23 X10^3/uL; Hematocrit 36.7 % (40-54); Lymphocyte # 2.23 X10^3/ul (0.83-4.51); Lymphocyte % 38.6 % (19-41); Mean Corp Hgb Conc 35.4 g/dL (32-36); Mean Corpuscular Volume 90.4 fL (80-94); Mean Platelet Vol. 8.6 fl (6.2-12.0); Monocyte# 0.58 X10^3/uL; Monocyte% 10.1 % (0-10); NRBC Flagged by Analyzer 0 % (0-5); Neutrophil # 2.68 X10^3/uL (2.7-7.7); Neutrophil % 46.4 % (47-70); Platelet Count 269 K/mm3 (150-450); RBC Distribution Width CV 12.9 % (11.6-14.6); RBC Distribution Width SD 42.1 fl (35.1-43.9); Red Blood Count 4.06 M/mm3 (4.6-6.2); White Blood Count 5.8 K/mm3 (4.4-11.0)
[2024-04-18 11:40] LABS: ALB/GLOB Ratio 1.6 RATIO (0.9-2.4); AST(SGOT) 31 U/L (<=37); Alanine Aminotransfer ALT/SGPT 47 U/L (<=46); Albumin, Serum 4.1 g/dL (3.4-4.8); Alkaline Phosphatase 42 U/L (40-129); Anion Gap 12 (5-15); BUN 8 mg/dL (4-19); BUN/Creat Ratio 8.9 RATIO (10-20); Calcium 8.8 mg/dL (7.6-11.0); Carbon Dioxide 18.3 mmol/L (22.0-29.0); Chloride 94 mmol/L (96-108); Creatinine, Serum 0.94 mg/dL (0.70-1.20); EST Glomerular Filtration Rate 86 (>60); Globulin 2.5 g/dL (2.2-4.2); Glucose 133 mg/dL (70-99); Potassium 4.3 mmol/L (3.3-5.1); Protein, Total 6.6 g/dL (5.9-8.4); Sodium Level 124 mmol/L (133-145); Total Bilirubin 0.51 mg/dL (0.00-1.30)
== END | disposition home or self-care (01) ==
LOC: MTLAB 09:08
PROVIDERS: PCP Family Medicine; Referring Provider Internal Medicine Rheumatology; Visit Provider Internal Medicine Rheumatology
DX: M06.4 Inflammatory polyarthropathy (principal); Z79.899 Other long term (current) drug therapy
CPT/HCPCS: 36415; 80053; 85025

== ENCOUNTER → 2024-06-22 | Outpatient (CLI) | payer MEDICARE, SELFPAY ==
--- NOTE | 2024-06-22 09:30 | RAD_ITS ---
PROCEDURE: WRIST MIN 3 VIEWS, 06/22/2024 REASON FOR EXAM: WRIST TECHNIQUE: AP, lateral, and oblique views of the LEFT wrist were obtained COMPARISON: 12/06/2021 FINDINGS: Fracture/dislocation: None visible. Joint space(s): [id number] joint space loss of the 1st CMC. Mild/moderate joint space loss of the STT joint. Soft tissues: Vascular calcifications. Foreign bodies: None visible. Bone mineralization: Demineralization. Other: None. RAD/Wrist min 3 Views IMPRESSION: 1. Demineralization without visible acute displaced fracture.. 2. Additional description as above. Reading Location: [id number]
== END | disposition home or self-care (01) ==
LOC: MTRAD 09:25
PROVIDERS: PCP Family Medicine; Referring Provider Physician Assistant; Visit Provider Physician Assistant
DX: M25.532 Pain in left wrist (principal)
CPT/HCPCS: 73110

== ENCOUNTER → 2024-07-04 | Outpatient (CLI) | payer MEDICARE, SELFPAY ==
[2024-07-04 10:05] LABS: Absolute Lymphocyte Count 1.98 X10^3/uL (0.83-4.51); Absolute Neutrophil Count 3.7 X10^3/uL (2.0-7.7); Basophil# 0.06 X10^3/uL; Basophil% 0.9 % (0-1); Eosinophil# 0.18 X10^3/uL; Eosinophils% 2.6 % (0-5); Hematocrit 36.1 % (40-54); Lymphocyte # 1.98 X10^3/ul (0.83-4.51); Lymphocyte % 28.6 % (19-41); Mean Corpuscular Hgb 33.1 pg (27.0-32.0); Mean Corpuscular Volume 91.9 fL (80-94); Mean Platelet Vol. 8.5 fl (6.2-12.0); Monocyte# 0.97 X10^3/uL; NRBC Flagged by Analyzer 0 % (0-5); Neutrophil # 3.71 X10^3/uL (2.7-7.7); Neutrophil % 53.5 % (47-70); Platelet Count 221 K/mm3 (150-450); RBC Distribution Width CV 13.5 % (11.6-14.6); RBC Distribution Width SD 45.2 fl (35.1-43.9); Red Blood Count 3.93 M/mm3 (4.6-6.2); White Blood Count 6.9 K/mm3 (4.4-11.0)
[2024-07-04 10:29] LABS: ALB/GLOB Ratio 1.9 RATIO (0.9-2.4); AST(SGOT) 20 U/L (<=37); Alanine Aminotransfer ALT/SGPT 23 U/L (<=46); Albumin, Serum 4.2 g/dL (3.4-4.8); Alkaline Phosphatase 37 U/L (40-129); Anion Gap 10 (5-15); BUN 8 mg/dL (4-19); BUN/Creat Ratio 8.4 RATIO (10-20); Calcium,Total 8.8 mg/dL (7.6-11.0); Carbon Dioxide 20.6 mmol/L (21.0-32.0); Chloride 96 mmol/L (98-108); Creatinine, Serum 0.98 mg/dL (0.70-1.20); EST Glomerular Filtration Rate 82 (>60); Globulin 2.2 g/dL (2.2-4.2); Glucose 107 mg/dL (70-99); Potassium 4.7 mmol/L (3.3-5.1); Protein, Total 6.4 g/dL (5.9-8.4); Sodium Level 127 mmol/L (133-145); Total Bilirubin 0.48 mg/dL (0.00-1.30)
== END | disposition home or self-care (01) ==
LOC: MTLAB 08:57
PROVIDERS: PCP Family Medicine; Referring Provider Internal Medicine Rheumatology; Visit Provider Internal Medicine Rheumatology
DX: M06.4 Inflammatory polyarthropathy (principal); Z79.899 Other long term (current) drug therapy
CPT/HCPCS: 36415; 80053; 85025

== ENCOUNTER → 2024-10-24 | Outpatient (CLI) | payer MEDICARE, SELFPAY ==
[2024-10-24 10:23] LABS: Hematocrit 35.9 % (40-54); Hemoglobin 12.8 g/dL (13.0-16.5); Immature Granulocytes Count 0.020 X10^3/uL (0.0-0.0); Mean Corp Hgb Conc 35.7 g/dL (32-36); Mean Corpuscular Volume 93.5 fL (80-94); Mean Platelet Vol. 8.7 fl (6.2-12.0); NRBC Flagged by Analyzer 0 % (0-5); Platelet Count 211 K/mm3 (150-450); RBC Distribution Width CV 13.6 % (11.6-14.6); RBC Distribution Width SD 45.7 fl (35.1-43.9); Red Blood Count 3.84 M/mm3 (4.6-6.2); White Blood Count 7.1 K/mm3 (4.4-11.0)
[2024-10-24 10:56] LABS: AST(SGOT) 21 U/L (<=37); Alanine Aminotransfer ALT/SGPT 24 U/L (<=46); Albumin, Serum 4.1 g/dL (3.4-4.8); Alkaline Phosphatase 42 U/L (40-129); Anion Gap 10 (5-15); BUN 6 mg/dL (4-19); BUN/Creat Ratio 7.7 RATIO (10-20); Calcium,Total 8.8 mg/dL (7.6-11.0); Carbon Dioxide 22.5 mmol/L (21.0-32.0); Chloride 97 mmol/L (98-108); Globulin 2.5 g/dL (2.2-4.2); Glucose 100 mg/dL (70-99); Potassium 4.6 mmol/L (3.3-5.1)
== END | disposition home or self-care (01) ==
LOC: MTLAB 08:05
PROVIDERS: PCP Family Medicine; Referring Provider Internal Medicine Rheumatology; Visit Provider Internal Medicine Rheumatology
DX: M06.4 Inflammatory polyarthropathy (principal); I10 Essential (primary) hypertension; Z79.899 Other long term (current) drug therapy
CPT/HCPCS: 36415; 80053; 85025

== ENCOUNTER → 2025-01-20 | Outpatient (CLI) | payer MEDICARE, SELFPAY ==
[2025-01-20 12:32] LABS: Hematocrit 36.0 % (40-54); Hemoglobin 12.6 g/dL (13.0-16.5); Immature Granulocytes Count 0.020 X10^3/uL (0.0-0.0); Mean Corp Hgb Conc 35.0 g/dL (32-36); Mean Corpuscular Volume 95.0 fL (80-94); Mean Platelet Vol. 9.3 fl (6.2-12.0); NRBC Flagged by Analyzer 0 % (0-5); Platelet Count 225 K/mm3 (150-450); RBC Distribution Width CV 13.6 % (11.6-14.6); RBC Distribution Width SD 47.0 fl (35.1-43.9); Red Blood Count 3.79 M/mm3 (4.6-6.2); White Blood Count 6.1 K/mm3 (4.4-11.0)
[2025-01-20 13:02] LABS: AST(SGOT) 19 U/L (<=37); Alanine Aminotransfer ALT/SGPT 17 U/L (<=46); Albumin, Serum 4.4 g/dL (3.4-4.8); Alkaline Phosphatase 38 U/L (40-129); Anion Gap 12 (5-15); BUN 9 mg/dL (4-19); BUN/Creat Ratio 8.9 RATIO (10-20); Calcium,Total 9.1 mg/dL (7.6-11.0); Carbon Dioxide 22.8 mmol/L (21.0-32.0); Chloride 97 mmol/L (98-108); Globulin 2.3 g/dL (2.2-4.2); Glucose 108 mg/dL (70-99); Potassium 4.5 mmol/L (3.3-5.1)
== END | disposition home or self-care (01) ==
LOC: MTLAB 09:22
PROVIDERS: PCP Family Medicine; Referring Provider Internal Medicine Rheumatology; Visit Provider Internal Medicine Rheumatology
DX: M06.4 Inflammatory polyarthropathy (principal); Z79.899 Other long term (current) drug therapy
CPT/HCPCS: 36415; 80053; 85025

== ENCOUNTER → 2025-01-31 | Outpatient (CLI) | payer MEDICARE, SELFPAY ==
--- NOTE | 2025-01-31 09:15 | RAD_ITS ---
PROCEDURE: WRIST MIN 3 VIEWS 01/31/2025 REASON FOR EXAM: SWELLING/ PAIN TECHNIQUE: Procedure Code: RADWR Modality: DX Procedure: WRIST MIN 3 VIEWS Left wrist three views COMPARISON: June 22, 2024 FINDINGS: Osteoarthritis is noted at the scaphotrapezium articulation and 1st carpometacarpal articulation. There is no acute fracture or dislocation identified. Vascular calcifications are visible. Mineralization is normal. RAD/Wrist min 3 Views IMPRESSION: Degenerative changes with no acute fracture or dislocation. MRI with and witho ut contrast could be helpful for further characterization of the clinically palpable mass. Reading Location: [place]
== END | disposition home or self-care (01) ==
LOC: MTRAD 09:15
PROVIDERS: PCP Family Medicine; Referring Provider Physician Assistant; Visit Provider Physician Assistant
DX: M25.432 Effusion, left wrist (principal)
CPT/HCPCS: 73110